=== PATIENT | female | born 1980 | race Caucasian/White ===

== ENCOUNTER 2021-06-07 16:29 | Outpatient (REF) | payer BC, SELFPAY ==
--- NOTE | 2021-06-07 15:20 | CER_PTH ---
PATIENT: Tyler Montes LOC: N U#:[id number] AGE/SX: 41/F ROOM: RE06/07/[address]: Aditi Altamirano DO : 1980 BED: DIS: 06/07/2021 SPEC #: [id number] RECD: 06/07/21 17:03 STATUS: VIKASH RE #: [id number] JAXSON: 06/07/21 15:[address]: Aditi Altamirano DEPT: Surgical Specimen RECD BY: Radha Duggan ENTERED: 06/07/21 17:04 SP TYPE: CER OTHR DR: Fouzia Daugherty Tissues: 1 - ENDOCERVICAL BX/CURRETTE 2 - CERVICAL BIOPSY Procedures: GROSS AND MICRO LEVEL 4 Comments: [id number]
== END 2021-06-07 16:30 | disposition home or self-care (01) ==
LOC: LBN 16:29
PROVIDERS: PCP Nurse Practitioner; Visit Provider Obstetrics & Gynecology
DX: R87.610 Atypical squamous cells of undetermined significance on cytologic smear of cervix (ASC-US) (principal)
CPT/HCPCS: 88305

== ENCOUNTER 2022-07-31 09:17 | Inpatient (IN) | payer BC, SELFPAY ==
[2022-07-31] VITALS (24 sets, daily range): BP systolic 127–147; BP diastolic 86–121; PULSE 94–153; RESP 18–25; TEMP 37–38.5; O2SAT 98–100
--- NOTE | 2022-07-31 09:30 | RT.EKG_ITS ---
APPROVED REPORT Exam: Resting ECG Reason for Exam: eating disorder, ETOH abuse, hematemesis Patient Location: E HR:116 bpm ECG Measurements Heart Rate 116 AXIS GA 112 P 74 QRSd 77 QRS 63 QT 317 T 61 QTc 441 Conclusion Sinus tachycardia...rate> 99 Left atrial enlargement...P, P'>60mS, <-0.15mV V1 Narrow complex sinus tachycardia at a rate of 116. Normal axis. Diffuse mild ST segment depressions . T wave flattening in aVL. No prior for comparison. QTc within normal limits.
--- NOTE | 2022-07-31 09:40 | DI.CT_ITS ---
Exam(s) CT CHEST/ABD/PEL WO EXAM: CT CHEST/ABD/PEL WO CLINICAL HISTORY: hematemesis, hx of ETOH abuse, started non bloody. TECHNIQUE: Imaging Protocol: Axial computed tomography images with coronal and sagittal reformatted images were created and reviewed CONTRAST MATERIAL: Intravenous: none Oral: None COMPARISON: No exams were available for comparison FINDINGS: CHEST: LUNGS: No infiltrates nor pleural effusions. No ominous pulmonary nodules. No significant focal fin dings in the trachea and mainstem bronchi. No bronchiectasis.. MEDIASTINUM: No obvious hilar nor mediastinal adenopathy. Visualized thyroid unremarkable.There is di ffuse circumferential thickening of the esophagus. No obvious paraesophageal adenopathy. CARDIAC: Heart size is normal. There is no pericardial effusion.Caliber of the thoracic aorta is wit hin normal limits. OSSEOUS: No significant osseous lesions.No fractures.. ABDOMEN: There is no ascites. LIVER: There are no obvious focal hepatic lesions evident of this noninfused study. GALLBLADDER/BILIARY: No obvious gallbladder pathology. CBD is not dilated. PANCREAS: No evidence of obvious pancreatic mass nor dilatation of the pancreatic duct. SPLEEN: Spleen is not enlarged. No obvious intrasplenic lesions. ADRENALS: There are no significant adrenal masses. KIDNEYS: No calculi nor hydronephrosis. No obvious solid renal masses. No cysts evident. ABDOMINAL AORTA: Abdominal aorta is not enlarged. LYMPH NODES: There is no retroperitoneal nor para-aortic adenopathy. ABDOMINAL WALL/GI: No evidence of significant anterior abdominal wall nor inguinal hernia. The entir e colon is collapsed difficult to evaluate. No evidence of small bowel obstruction. PELVIS: LYMPH NODES: There is no intrapelvic nor inguinal adenopathy. GI: No evidence of appendicitis.No evidence of sigmoid diverticulitis. URINARY BLADDER: No calculi nor obvious masses evident REPRODUCTIVE: Uterus and adnexal regions appear unremarkable. No free fluid. OSSEOUS: No significant osseous lesions. No fractures. Sacroiliac joints appear unremarkable IMPRESSION: 1. There appears to be circumferential thickening of the esophagus. Suspicious for esophagitis versu s is other inflammatory type process versus infiltrative process. This esophageal thickening appears to involve long length of the esophagus. 2. Colon is collapsed. There is no evidence of small-bowel obstruction. Findings called by myself to ER provider. RADIATION DOSE DELIVERED: 770.56mGy.cm Total DLP DATA REPOSITORY: All CT scans at this facility are submitted to the National Radiology Data Registry (NRDR) Dose Index Registry (DIR) with the [employer] (A[employer]). RADIATION OPTIMIZATION: All CT scans at this facility use at least one of these dose optimization te chniques: automated exposure control; mA and/or kV adjustment per patient size (includes targeted exa ms where dose is matched to clinical indication); or iterative reconstruction.
--- NOTE | 2022-07-31 09:41 | ED.GENADUL_ITS ---
Discharge Plan Disposition Patient Disposition: Admit to [facility] Condition: Serious Condition: Good Discharge Details Chief Complaint: GI Bleed Clinical Impression: Malnutrition, Upper GI bleeding, Alcohol abuse Admit Date/Time: 07/31/22 14:54 Admit Provider: Nathalia Vail Attending Provider: Nathalia Vail ED Provider: Candie Cleaning Discharge Instructions Activity:: Activity as Tolerated Equipment/Supplies:: No Equipment Needed Diet:: soft foods Discharge Orders Discharge Orders: Discharge Order (Routine); Ordered 08/03/22 Ordered By: Rajan Bennett Discharge Data Discharge Date/Time-TO BE ENTERED AT DEPARTURE: 07/31/22 16:35 Medical Decision Making Patient is a pleasant 42-year-old female, accompanied by her mother, with chief complaint of hematemesis. Patient has past medical history of EtOH abuse and states that she routinely drinks whiskey. However, has not been able to have this over the past 24 hours because of the nausea and vomiting. States that yesterday around 3 PM she awoke from sleep and had an episode of emesis which she states was normal liquids and foodstuffs. However, she subsequently developed hematemesis and is bringing up some large clots. Has not had any diarrhea or bright red blood per rectum. Did not have a bowel movement yesterday. No previous abdominal surgeries. States she does have suffer from eating disorder as well. States that she has had a history of acid reflux but this does not feel the same. Has not had any syncopal episodes or lightheadedness. Denies any shortness of breath or chest pain. States that she is been having some epigastric discomfort fairly continuously since the onset. Did try some Zofran that was from others at home without any success. On exam, patient appears acutely ill. She is tremulous and I am concerned for alcohol withdrawals. No known seizure history. She is tachypneic and tachycardic. However, lungs are clear and she is normal cardiac auscultation. No crepitus is palpated. She does have some dark purple staining in her mouth, concern for some dried blood. Abdomen is tender near the epigastric region but no peritoneal findings. She states that this more induces the increase feeling of nausea. No susna peritoneal findings at this time. I not appreciate any rash or petechia. She does have warm pink skin appears well-perfused. Patient is not hypotensive. At this time, I am concerned for multitude of factors including alcohol withdrawal, GI bleed. As she did have the initial foodstuffs, I am concerned for potential Zoë-Mason although variceal bleed certainly needs to be considered as the patient does have such a lengthy history of EtOH abuse and has not had any routine medical care. She is not actively vomiting at this point. We will begin hydrating the patient, give antiemetics, Protonix as well as Ativan. Will obtain imaging baseline labs which will also include type and screen, evaluation of coagulation, lipase, LFTs. Patient resting comfortably. Shaking has stopped. She is sleeping, mom at bedside. No further N/V. Receiving hydration. Labs reviewed, leukocytosis with WBC 28. H&H are stable. Platetlets WNL. Lactate 4.7. Gap 32. Creatinin 1.9. GFR 33, will change CT scan to non-contrast. LFT WNL. Glucose elevated >300, no hx of DM. Will obtain VBG. Will trend the glucose. CT reviewed by radiology: CHEST: LUNGS: No infiltrates nor pleural effusions.? No ominous pulmonary nodules.? No significant focal findings in the trachea and mainstem bronchi.? No bronchiectasis..? MEDIASTINUM: No obvious hilar nor mediastinal adenopathy. Visualized thyroid unremarkable.There is diffuse circumferential thickening of the esophagus.? No obvious paraesophageal adenopathy. CARDIAC: Heart size is normal.? There is no pericardial effusion.Caliber of the thoracic aorta is within normal limits. OSSEOUS: No significant osseous lesions.No fractures.. ABDOMEN: There is no ascites. LIVER: There are no obvious focal hepatic lesions evident of this noninfused study.? GALLBLADDER/BILIARY: No obvious gallbladder pathology.? CBD is not dilated. PANCREAS: No evidence of obvious pancreatic mass nor dilatation of the pancreatic duct.? SPLEEN: Spleen is not enlarged.? No obvious intrasplenic lesions.? ADRENALS: There are no significant adrenal masses. KIDNEYS: No calculi nor hydronephrosis. No obvious solid renal masses. No cysts evident. ABDOMINAL AORTA: Abdominal aorta is not enlarged. LYMPH NODES: There is no retroperitoneal nor para-aortic adenopathy. ABDOMINAL WALL/GI: No evidence of significant anterior abdominal wall nor inguinal hernia.? The entire colon is collapsed difficult to evaluate. No evidence of small bowel obstruction. PELVIS:? LYMPH NODES: There is no intrapelvic nor inguinal adenopathy. GI: No evidence of appendicitis.No evidence of sigmoid diverticulitis. URINARY BLADDER: No calculi nor obvious masses evident REPRODUCTIVE: Uterus and adnexal regions appear unremarkable.? No free fluid. OSSEOUS: No significant osseous lesions.? No fractures. Sacroiliac joints appear unremarkable IMPRESSION: 1. There appears to be circumferential thickening of the esophagus.? Suspicious for esophagitis versus is other inflammatory type process versus infiltrative process.? This esophageal thickening appears to involve long length of the esophagus. 2. Colon is collapsed.? There is no evidence of small-bowel obstruction. volleyball coach to see patient. Consulted with general surgery to discuss case. they advised patient does not need emergent EGD, recommended admission, monitoring, hydration. Consulted with hospitalist. Patient to be admitted for hematemsis, dehydration, ETOH withdraw. HPI General Date/Time Provider Initiated Documentation: 07/31/22 09:28 . Limitations to Documentation: no limitations . Information obtained by: patient, family (mom) and RN notes reviewed . History of Present Illness 42 year old F presents to the emergency department with the chief complaint of nausea, hematemesis , described as severe, Quality is described as aching (nausea), and is localized to the abdomen. Patient reports no radiation. Patient started experiencing this day(s) (1) and it has been constant. No relieving factors improve symptom(s), No exacerbating factors reported . Patient notes fever/chills, loss of appetite, malaise, nausea/vomiting and weakness (feels generally weak); denies chest pain, cough, headaches, rash, seizure (no hx of DT in the past) and shortness of breath. Patient did receive the following treatments prior to arrival, other (tried zofran initially, no improvment) Related Data Home Medications Medication Instructions Recorded Confirmed citalopram 20 mg tablet 20 mg PO DAILY #30 tabs 08/03/22 dronabinol 2.5 mg capsule 5 mg PO BID@0700,1600 #60 caps 08/03/22 folic acid 1 mg tablet 1 mg PO DAILY #30 tabs 08/03/22 magnesium oxide 400 mg (241.3 mg 800 mg PO DAILY #30 tabs 08/03/22 magnesium) tablet multivitamin (Multiple Vitamins 1 tab PO QAM #30 tabs 08/03/22 tablet) pantoprazole 40 mg tablet,delayed 40 mg PO DAILY #30 tabs 08/03/22 release (Protonix) sucralfate 1 gram tablet 1 g PO Q6H #120 tabs 08/03/22 thiamine mononitrate (vit B1) 100 100 mg PO QAM #30 tabs 08/03/22 mg tablet (Vitamin B-1 (mononitrate)) Previous Rx's Medication Instructions Recorded citalopram 20 mg tablet 20 mg PO DAILY #30 tabs 08/03/22 dronabinol 2.5 mg capsule 5 mg PO BID@0700,1600 #60 caps 08/03/22 folic acid 1 mg tablet 1 mg PO DAILY #30 tabs 08/03/22 magnesium oxide 400 mg (241.3 mg 800 mg PO DAILY #30 tabs 08/03/22 magnesium) tablet multivitamin (Multiple Vitamins 1 tab PO QAM #30 tabs 08/03/22 tablet) pantoprazole 40 mg tablet,delayed 40 mg PO DAILY #30 tabs 08/03/22 release (Protonix) sucralfate 1 gram tablet 1 g PO Q6H #120 tabs 08/03/22 thiamine mononitrate (vit B1) 100 100 mg PO QAM #30 tabs 08/03/22 mg tablet (Vitamin B-1 (mononitrate)) Allergies Allergy/AdvReac Type Severity Reaction Status Date / Time No Known Allergies Allergy Verified 06/07/21 15:06 General Stated Complaint: GI Bleed DIANA: 2 Review of Systems Constitutional Constitutional: Reports as per HPI, Denies chills, Denies fever(s) and Denies headache(s) ENT Ears, Nose, Mouth, and Throat: Denies headache(s) Cardiovascular Cardiovascular: Reports as per HPI, Denies chest pain and Denies dyspnea Respiratory Respiratory: Reports as per HPI, Denies cough and Denies dyspnea Gastrointestinal Gastrointestinal: Reports as per HPI Musculoskeletal Musculoskeletal: Reports as per HPI Integumentary/Breasts Skin/Breast: Reports as per HPI and Denies rash Neurologic Neurologic: Reports as per HPI and Denies headache(s) PFSH All Active Problems (Updated 08/10/22 @ 09:49 by JOSE ALEJANDRO Bah) Malnutrition (Acute) Alcohol abuse (Chronic) Upper GI bleeding (Acute) Pap smear of cervix with ASCUS, cannot exclude HGSIL (Acute) 05/23 Pap=ASCUS-H, -HR HPV 06/21 Pap-WNL, +HR HPV 09/13 Pap=ASCUS ?HPV Medical History Anxiety Depression Fibromyalgia Surgical History History of bunionectomy of both great toes Family History Paternal Grandfather Heart disease Paternal Grandmother Stroke Mother Hypertension Cancer cervical cancer Sister Cancer cervical cancer Social History Smoking/Tobacco Use Status: Current every day Smoking risk assessment performed?: Yes Alcohol Intake: current Alcohol Intake frequency: 0-2 drinks per day Drug use: Daily Substance use type: marijuana Current gender identity: female Exam Const General: cooperative, anxious, frail appearing, ill appearing acutely and No well hydrated Nutritional Appearance: malnourished and underweight (states she has an eating disorder) Orientation: alert and awake [facility] Head: normal to inspection Mouth: oropharynx normal (no rash) and mucous membranes dry Throat: posterior oropharynx normal Eyes General: appearance normal, both eyes and all related structures Conjunctivae: conjunctivae normal (no palor) Neck Neck: normal visual inspection, full ROM, no lymphadenopathy and no meningeal signs Resp Effort & Inspection: normal respiratory effort, able to speak in complete sentences and no respiratory distress Auscultation: clear to auscultation bilaterally, no rales, no rhonchi and no wheezes Cardio Rate: tachycardic Rhythm: regular rhythm Heart Sounds: S1 normal and S2 normal GI Inspection: normal to inspection Palpation: soft, no guarding, no masses, not rigid, tender in the epigastrum; Monahan's sign negative and with no rebound tenderness and No ascites Percussion: normal to percussion Auscultation: hypoactive bowel sounds Back/Spine/Pelvis Back: no CVA tenderness Skin General skin exam: no rashes or lesions noted Trauma: no lacerations or abrasions Neuro General: patient alert and patient awake Cognition: normal cognition Speech: speech normal Gait: normal gait Motor: muscle tone normal throughout, tremor (upper extremities are shakey) and No asterixis Psych Appearance: grossly normal Mental Status: mental status grossly normal Speech and Movement: speech and movement normal Mood: anxious mood Affect: anxious affect Course Vital Signs Vital signs: Vital Signs Temperature 37.0 C 07/31/22 09:27 Pulse 153 H 07/31/22 09:27 Respiratory Rate 20 07/31/22 09:27 Blood Pressure 144/121 H 07/31/22 09:27 Pulse Oximetry 99 07/31/22 09:27 Temperature 37.0 C 07/31/22 09:27 Temperature Source Temporal Artery Scan 07/31/22 09:27 Pulse 153 H 07/31/22 09:27 Respiratory Rate 20 07/31/22 09:27 Blood Pressure 144/121 H 07/31/22 09:27 Blood Pressure Position Sitting 07/31/22 09:27 Pulse Oximetry 99 07/31/22 09:27
[2022-07-31] MEDS: Lactated Ringers 1,000 ML 1000 ML IV ×3 (10:01→13:00)
[2022-07-31] MEDS: LORazepam 2 MG/ML VIAL 1 MG IVP (10:02)
[2022-07-31] MEDS: Pantoprazole 40 MG VIAL 80 MG IVP (10:02)
[2022-07-31] MEDS: Ondansetron 4 MG/2 ML VIAL IVP ×2 (10:02→17:09)
[2022-07-31 10:03] LABS: Lactate 4.7 mmol/L (0.6-1.4)
[2022-07-31 10:04] LABS: Abs Immature Grans 0.27 10^3/uL (0.0-0.06); Basophils % 0.3; HCT 50.6 % (36.0-46.0); HGB 16.8 g/dL (11.2-15.7); Immature Grans % 0.8; Lymphocytes % 2.1; MCH 35.1 pg (27.0-33.0); MCHC 33.2 % (32.0-36.0); MCV 106 fL (80-95); MPV 9.7 fL (8.0-11.0); Monocytes % 4.2; Neutrophils % 92.6; Platelet Count 388 10^3/uL (130-400); RBC 4.78 10^6/uL (3.93-5.22); RDW 12.1 % (11.7-14.6)
[2022-07-31 10:07] LABS: Absolute Lymphocyte Count 0.73 10^3/uL (1.2-3.4); Absolute Monocyte Count 1.46 10^3/uL (0.1-0.8); Absolute Neutrophil Count 32.09 10^3/uL (1.2-6.7)
[2022-07-31 10:08] LABS: WBC 34.65 10^3/uL (4.4-10.8)
[2022-07-31 10:21] LABS: PTT Activated 28.4 sec (21.5-31.9); Prothrombin Time 9.9 sec (9.3-11.0)
[2022-07-31 10:23] LABS: Diff Comment Agrees w/ Instrument; Macrocytosis 2+
[2022-07-31 10:30] LABS: ALT 33 U/L (14-59); AST 35 U/L (15-37); Albumin 5.2 g/dL (3.4-5.0); Alkaline Phosphatase 137 U/L (46-116); Anion Gap 32.8 mmol/L (3-11); BUN 19 mg/dL (7-18); Bilirubin, Total 0.9 mg/dL (0.2-1.0); CO2 9.2 mmol/L (21.0-32.0); CREATININE 1.9 mg/dL (0.55-1.02); Calcium 9.8 mg/dL (8.5-10.1); Chloride 99 mmol/L (98-107); Estimated GFR 33.39 (mL/min/1.73m2); Glucose 329 mg/dL (74-106); Lipase 67 U/L (16-77); Magnesium 2.4 mg/dL (1.8-2.4); Potassium 4.1 mmol/L (3.5-5.1); Sodium 141 mmol/L (136-145); Total Protein 9.8 g/dL (6.4-8.2); Troponin I < 50 ng/L (<or=60)
[2022-07-31 13:04] LABS: Lactate 2.2 mmol/L (0.6-1.4)
[2022-07-31] MEDS: diphenhydrAMINE 50 MG/ML VIAL 25 MG IVP (13:12)
[2022-07-31] MEDS: Metoclopramide 10 MG/2 ML VIAL IVP (13:12)
[2022-07-31 13:22] LABS: Troponin I < 50 ng/L (<or=60)
[2022-07-31 14:14] LABS: Source Nasal/Nares
[2022-07-31 14:15] LABS: Abs Immature Grans 0.18 10^3/uL (0.0-0.06); Absolute Basophil Count 0.06 10^3/uL (0.0-0.2); Absolute Lymphocyte Count 1.26 10^3/uL (1.2-3.4); Absolute Monocyte Count 1.86 10^3/uL (0.1-0.8); Absolute Neutrophil Count 25.31 10^3/uL (1.2-6.7); Basophils % 0.2; HCT 40.7 % (36.0-46.0); HGB 13.8 g/dL (11.2-15.7); Immature Grans % 0.6; Lymphocytes % 4.4; MCH 34.9 pg (27.0-33.0); MCHC 33.9 % (32.0-36.0); MCV 103 fL (80-95); MPV 9.6 fL (8.0-11.0); Monocytes % 6.5; Neutrophils % 88.3; Platelet Count 291 10^3/uL (130-400); RBC 3.95 10^6/uL (3.93-5.22); RDW-SD 45.9 fL
[2022-07-31 14:16] LABS: WBC 28.66 10^3/uL (4.4-10.8)
[2022-07-31 14:33] LABS: Diff Comment Diff Reviewed; RBC Morphology Normal
[2022-07-31 15:40] LABS: BE (Venous) -8 mmol/L (-2-3); HCO3 (Venous) 17 mmol/L (23-28); O2 Sat (Venous) 83 %; TCO2 (Venous) 16 mmol/L (24-29); pCO2 (Venous) 32 mmHg (41-51); pH (Venous) 7.34 (7.31-7.41); pO2 (Venous) 41 mmHg
[2022-07-31 15:40] LABS: Hemoglobin A1C 4.7 % (<5.7)
[2022-07-31] MEDS: Sucralfate 1 GM TAB PO ×2 (15:43→20:16)
[2022-07-31 15:55] LABS: COVID-19 PCR Negative (Negative)
[2022-07-31 16:01] LABS: Anion Gap 16.8 mmol/L (3-11); BUN 15 mg/dL (7-18); CO2 18.2 mmol/L (21.0-32.0); Calcium 9.1 mg/dL (8.5-10.1); Chloride 108 mmol/L (98-107); Estimated GFR 72.13 (mL/min/1.73m2); Glucose 124 mg/dL (74-106); Potassium 3.9 mmol/L (3.5-5.1); Sodium 143 mmol/L (136-145)
--- NOTE | 2022-07-31 16:36 | HPE_ITS ---
Date of service: 07/31/22 Time of Service: 16:36 Assessment and Plan Assessment and plan (1) SIRS (systemic inflammatory response syndrome): Status: Acute Assessment and plan: In setting of a fever, infectious etiologies need to be considered. In addition, DKA, GI bleeding, esophageal process can all contribute to SIRS. Hydrate, start empiric abx (zosyn), will give a push of 5 units of regular insu pura and cover w/ D5 fluids as BGs are in 120s now, treat GI Bleeding. Given the rate of improvement w/o insulin, I do not think that she will need an insulin drip, but we will monitor serial labs to help make that decision. MOnitor H/H. (2) Metabolic acidosis: Status: Acute Assessment and plan: Due to likely DKA (BG >300, high anion gap), starvation ketoacidosis, dehydration, lactic acidosis. Continue IV hydration. DKA tx as above. Trend lactates. (3) Hyperglycemia: Status: Acute Assessment and plan: A1C of 4.7 suggest that the hyperglycemia/DKA are relatively new. I am checking fructosamine. Will treat as DKA for now. (4) Upper GI bleeding: Status: Acute Assessment and plan: Treat with IV protonix + carafate. NPO Trend H/H. Cardiac monitoring. General surgery consulted. (5) Alcohol withdrawal: Status: Acute Assessment and plan: Treat with the benzodiazepine protocol in the ICU (6) Alcohol abuse: Status: Chronic Assessment and plan: Check b12/folate. IV thiamine, MVI. (7) Malnutrition: Status: Acute Assessment and plan: C/s nutrition Patient diagnosed herself with an eating d/o. Her BMI is 18.2, and I think she might be right. (8) DVT prophylaxis: Status: Acute Assessment and plan: SCDS hold chemical dvt ppx in light of GI bleeding (9) Discharge planning issues: Status: Acute Assessment and plan: Full code Admit to ICU. Total Critical Care Time 60 minutes. History of Present Illness History of Present Illness Chief Complaint: Vomiting blood Narrative: Ms Montes is a 42 year old female with no known PMHx other than alcohol abuse who presented to [facility] ED with vomiting blood, preceded by regular emesis yesterday. The patient states she woke up at 3 pm yesterday and had numerous episodes of emesis since. Denies diarrhea, states she has not eaten for a few days due to a self-diagnosed eating disorder and not feeling hunger. The patient reported epigastric discomfort. Denies fevers, endorses a chronic nonproductive cough, denies dysuria. In the ED, she was found to be withdrawing from alcohol. She had not been able to keep alcohol down for 24 hrs. She does not have a known h/o alcohol withdrawal or alcohol withdrawal seizures. Her symptoms responded well to lorazepam in the ED. She has not vomited in the ER. She was found to be tachycardic, to have a white count of 34.65 down to 28.66 on recheck, H/H of 16.8/50.6, down to 13.8/40.7, and platelets of 291. Her lactate improved to 2.2 from 4.7 after about 3L of fluid. Her blood sugar on the initial chemistry was 329 with a bicarb of 9.2. Her anion gap was 32.8. Repeat chemistry almost 6 hrs later showed a bicarb of 18.2, anion gap of 16.8. Repeat blood glucose was 124. VBG at the time of the 2nd chemistry shows pH of 7.34. UA is not available for interpretation. CT chest/abdomen/pelvis was c/w esophagitis vs other inflammatory vs infiltrative esophageal process. The patient was evaluated by general surgery who feel the patient would benefit from a nonemergent EGD. She is recommended to be on a PPI and carafate. Upon arrival to the ICU, the patient was noted to be febrile to 38.5. Review of Systems All systems reviewed & are unremarkable except as noted in HPI and below PFSH All Active Problems (Updated 07/31/22 @ 17:11 by Nathalia Vail MD) Discharge planning issues (Acute) DVT prophylaxis (Acute) Malnutrition (Acute) Alcohol withdrawal (Acute) Alcohol abuse (Chronic) Upper GI bleeding (Acute) Hyperglycemia (Acute) Metabolic acidosis (Acute) SIRS (systemic inflammatory response syndrome) (Acute) Pap smear of cervix with ASCUS, cannot exclude HGSIL (Acute) 05/23 Pap=ASCUS-H, -HR HPV 06/21 Pap-WNL, +HR HPV 09/13 Pap=ASCUS ?HPV Medical History (Updated 07/31/22 @ 17:11 by Nathalia Vail MD) Anxiety Depression Fibromyalgia Surgical History (Updated 07/31/22 @ 17:11 by Nathalia Vail MD) History of bunionectomy of both great toes Family History (Updated 07/31/22 @ 17:13 by Nathalia Vail MD) Paternal Grandfather Heart disease Paternal Grandmother Stroke Mother Hypertension Cancer cervical cancer Sister Cancer cervical cancer Social History Smoking/Tobacco Use Status: Current every day Smoking risk assessment performed?: Yes Alcohol Intake: current Alcohol Intake frequency: 0-2 drinks per day Drug use: Daily Substance use type: marijuana Current gender identity: female Meds Allergies and Home Medications Allergies Allergy/AdvReac Type Severity Reaction Status Date / Time No Known Allergies Allergy Verified 06/07/21 15:06 Home Medications Medication Instructions Recorded Confirmed Type Unknown [No Known Home Meds] 06/07/21 History Exam Narrative Exam Narrative: General: Tremulous malnourished appearing female, anxious, A&Ox3 Neurological: A&Ox3, no focal deficits, tremulous Psychiatric: Anxious, appropriate speech pattern/content Skin: Dry/intact HEENT: Atraumatic, normocephalic, EOMI, dry MM, black-stained tongue (presumably from hematemesis), no submandibular or cervical lymphadenopathy, no goiter or JVD Cardiovascular: RRR, no m/r/g, tachycardic Lungs: CTAB Gastrointestinal: soft, tender in epigastrium, nondistended Genitourinary: deferred Extremities: no edema BLEs, 1+ pedal pulses B, no c/c. Results Imaging Additional studies: CT abdomen/pelvis: 1. There appears to be circumferential thickening of the esophagus.? Suspicious for esophagitis versus is other inflammatory type process versus infiltrative process.? This esophageal thickening appears to involve long length of the esophagus. 2. Colon is collapsed.? There is no evidence of small-bowel obstruction. EKG: ST, HR 116, no acute ischemia with diffuse ST segment depressions. Labs 07/31/22 14:10 07/31/22 15:40 Labs: Laboratory Results - last 24 hr 07/31/22 07/31/22 07/31/22 09:50 09:50 09:50 WBC 34.65 H* RBC 4.78 Hgb 16.8 H Hct 50.6 H MCV 106 H MCH 35.1 H MCHC 33.2 RDW 12.1 Plt Count 388 MPV 9.7 Immature Gran % 0.8 Neutrophils % 92.6 Lymphocytes % 2.1 Monocytes % 4.2 Eosinophils % 0.0 Basophils % 0.3 Nucleated RBC % 0.0 Absolute Neutrophils 32.09 H Absolute Lymphocytes 0.73 L Absolute Monocytes 1.46 H Absolute Eosinophils 0.00 Absolute Basophils 0.10 RBC Morphology See Below Macrocytosis 2+ PT 9.9 INR 1.0 APTT 28.4 VBG pH VBG pCO2 VBG pO2 VBG HCO3 VBG Total CO2 VBG O2 Saturation VBG Base Excess VBG Lactate Sodium 141 Potassium 4.1 Chloride 99 Carbon Dioxide 9.2 L Anion Gap 32.8 H BUN 19 H Creatinine 1.9 H Est GFR (CKD-EPI 2020) 33.39 Glucose 329 H Hemoglobin A1c Calcium 9.8 Magnesium 2.4 Total Bilirubin 0.9 AST 35 ALT 33 Alkaline Phosphatase 137 H Troponin I < 50 Total Protein 9.8 H Albumin 5.2 H Lipase 67 COVID-19 Source SARS-CoV-2 (PCR) Patient ABO/Rh Antibody Screen 07/31/22 07/31/22 07/31/22 09:50 09:50 13:00 WBC RBC Hgb Hct MCV MCH MCHC RDW Plt Count MPV Immature Gran % Neutrophils % Lymphocytes % Monocytes % Eosinophils % Basophils % Nucleated RBC % Absolute Neutrophils Absolute Lymphocytes Absolute Monocytes Absolute Eosinophils Absolute Basophils RBC Morphology Macrocytosis PT INR APTT VBG pH VBG pCO2 VBG pO2 VBG HCO3 VBG Total CO2 VBG O2 Saturation VBG Base Excess VBG Lactate 4.7 H* Sodium Potassium Chloride Carbon Dioxide Anion Gap BUN Creatinine Est GFR (CKD-EPI 2020) Glucose Hemoglobin A1c Calcium Magnesium Total Bilirubin AST ALT Alkaline Phosphatase Troponin I < 50 Total Protein Albumin Lipase COVID-19 Source SARS-CoV-2 (PCR) Patient ABO/Rh O Positive Antibody Screen NEGATIVE 07/31/22 07/31/22 07/31/22 13:00 13:39 13:39 WBC RBC Hgb Hct MCV MCH MCHC RDW Plt Count MPV Immature Gran % Neutrophils % Lymphocytes % Monocytes % Eosinophils % Basophils % Nucleated RBC % Absolute Neutrophils Absolute Lymphocytes Absolute Monocytes Absolute Eosinophils Absolute Basophils RBC Morphology Macrocytosis PT Cancelled INR Cancelled APTT VBG pH VBG pCO2 VBG pO2 VBG HCO3 VBG Total CO2 VBG O2 Saturation VBG Base Excess VBG Lactate 2.2 H* Sodium Potassium Chloride Carbon Dioxide Anion Gap BUN Creatinine Est GFR (CKD-EPI 2020) Glucose Hemoglobin A1c 4.7 Calcium Magnesium Total Bilirubin AST ALT Alkaline Phosphatase Troponin I Total Protein Albumin Lipase COVID-19 Source SARS-CoV-2 (PCR) Patient ABO/Rh Antibody Screen 07/31/22 07/31/22 07/31/22 13:42 14:10 14:10 WBC 28.66 H* RBC 3.95 Hgb 13.8 D Hct 40.7 MCV 103 H MCH 34.9 H MCHC 33.9 RDW 12.0 Plt Count 291 MPV 9.6 Immature Gran % 0.6 Neutrophils % 88.3 Lymphocytes % 4.4 Monocytes % 6.5 Eosinophils % 0.0 Basophils % 0.2 Nucleated RBC % 0.0 Absolute Neutrophils 25.31 H Absolute Lymphocytes 1.26 Absolute Monocytes 1.86 H Absolute Eosinophils 0.00 Absolute Basophils 0.06 RBC Morphology Normal Macrocytosis PT INR APTT VBG pH VBG pCO2 VBG pO2 VBG HCO3 VBG Total CO2 VBG O2 Saturation VBG Base Excess VBG Lactate Sodium Potassium Chloride Carbon Dioxide Anion Gap BUN Creatinine Est GFR (CKD-EPI 2020) Glucose Hemoglobin A1c Calcium Magnesium Total Bilirubin AST ALT Alkaline Phosphatase Troponin I Total Protein Albumin Lipase COVID-19 Source Nasal/Nares SARS-CoV-2 (PCR) Negative Patient ABO/Rh Cancelled Antibody Screen 07/31/22 07/31/22 15:35 15:40 WBC RBC Hgb Hct MCV MCH MCHC RDW Plt Count MPV Immature Gran % Neutrophils % Lymphocytes % Monocytes % Eosinophils % Basophils % Nucleated RBC % Absolute Neutrophils Absolute Lymphocytes Absolute Monocytes Absolute Eosinophils Absolute Basophils RBC Morphology Macrocytosis PT INR APTT VBG pH 7.34 VBG pCO2 32 L VBG pO2 41 VBG HCO3 17 L VBG Total CO2 16 L VBG O2 Saturation 83 VBG Base Excess -8 L VBG Lactate Sodium 143 Potassium 3.9 Chloride 108 H Carbon Dioxide 18.2 L Anion Gap 16.8 H BUN 15 Creatinine 1.0 Est GFR (CKD-EPI 2020) 72.13 Glucose 124 H Hemoglobin A1c Calcium 9.1 Magnesium Total Bilirubin AST ALT Alkaline Phosphatase Troponin I Total Protein Albumin Lipase COVID-19 Source SARS-CoV-2 (PCR) Patient ABO/Rh Antibody Screen Last Vital Signs Temp 37.0 C 02/28/23 09:27 Pulse 102 H 07/31/22 15:01 Resp 20 07/31/22 09:27 BP 143/100 H 07/31/22 15:01 Pulse Ox 99 07/31/22 15:01 PAWSS Have you Been Recently Intoxicated or Drunk Within the Last 30 days?: Yes Have you Ever Experienced Previous Episodes of Alcohol Withdrawal?: No Have you ever Experienced Withdrawal Seizures?: No Have you ever Experienced Delirium Tremens(DT)s?: No Have you ever undergone Alcohol Rehabilitation Treatment (i.e, inpt ot outpatient treatment programs)?: No Have you ever Experienced Blackouts?: Yes Have you ever Combined Alcohol with other Downers within the last 90 days?: No Have you ever Combined Alcohol with any other Substance of Abuse during the last 90 days?: Yes Positive Blood Alcohol level on Presentation? [PCS.BAL]: Unable to Obtain Evidence of Increased Autonomic Activity (i.e. HR>120, tremor, sweating, agitation, nausea)?: Yes Result: 5 Time Spent Time spent with Patient: 55-74 minutes Time was spent: preparing to see the patient(eg.review tests), obtaining and/or reviewing separately otained hiistory, ordering medications,tests, procedures, referring, communicating with other health manager respiratory care, indepentently interpreting results, counseling the patient and care coordination
[2022-07-31 16:46] LABS: Lab Add On Test DONE
[2022-07-31 17:06] LABS: Bilirubin Moderate (Negative); Blood Small (Negative); Clarity Clear (Clear); Glucose Negative (Negative); Ketones >=160 mg/dL (Negative); Leukocyte Esterase Negative (Negative); Nitrite Negative (Negative); Specific Gravity >= 1.030 (1.005-1.025); Urobilinogen 0.2 mg/dL (Up to 0.2)
[2022-07-31] MEDS: Normal Saline Flush 10 ML SYR IVP (17:09)
[2022-07-31] MEDS: Pantoprazole 40 MG VIAL IVP (17:09)
[2022-07-31 17:12] LABS: Bacteria Negative HPF (Negative); C & S Indicated? No; Casts Negative LPF (Negative); Crystals Negative HPF (Negative); Epithelial Cells Few HPF (Negative); Mucus Negative (Negative); Other Cells Negative (Negative); WBC 0-2 HPF (0-5)
[2022-07-31 17:14] LABS: Procalcitonin 0.1 ng/mL
--- NOTE | 2022-07-31 17:40 | W.PM.PROGNOT ---
Date of Service Date of service: 07/31/22 Time of Service: 15:30 Objective Last Vital Signs Temp 37.0 C 07/31/22 09:27 Pulse 102 H 07/31/22 15:01 Resp 20 07/31/22 09:27 BP 143/100 H 07/31/22 15:01 Pulse Ox 99 07/31/22 15:01 Laboratory Results - last 24 hr 07/31/22 07/31/22 07/31/22 09:50 09:50 09:50 WBC 34.65 H* RBC 4.78 Hgb 16.8 H Hct 50.6 H MCV 106 H MCH 35.1 H MCHC 33.2 RDW 12.1 Plt Count 388 MPV 9.7 Immature Gran % 0.8 Neutrophils % 92.6 Lymphocytes % 2.1 Monocytes % 4.2 Eosinophils % 0.0 Basophils % 0.3 Nucleated RBC % 0.0 Absolute Neutrophils 32.09 H Absolute Lymphocytes 0.73 L Absolute Monocytes 1.46 H Absolute Eosinophils 0.00 Absolute Basophils 0.10 RBC Morphology See Below Macrocytosis 2+ PT 9.9 INR 1.0 APTT 28.4 VBG pH VBG pCO2 VBG pO2 VBG HCO3 VBG Total CO2 VBG O2 Saturation VBG Base Excess VBG Lactate Sodium 141 Potassium 4.1 Chloride 99 Carbon Dioxide 9.2 L Anion Gap 32.8 H BUN 19 H Creatinine 1.9 H Est GFR (CKD-EPI 2020) 33.39 Glucose 329 H Hemoglobin A1c Calcium 9.8 Magnesium 2.4 Total Bilirubin 0.9 AST 35 ALT 33 Alkaline Phosphatase 137 H Troponin I < 50 Total Protein 9.8 H Albumin 5.2 H Lipase 67 Procalcitonin Urine Color Urine Clarity Urine pH Ur Specific [place] Urine Protein Urine Ketones Urine Blood Urine Nitrite Urine Bilirubin Urine Urobilinogen Ur Leukocyte Esterase Urine RBC Urine WBC Ur Epithelial Cells Urine Crystals Urine Bacteria Urine Casts Urine Mucus Urine Other Ur Culture Indicated? Urine Glucose COVID-19 Source SARS-CoV-2 (PCR) Add-On Test Request Patient ABO/Rh Antibody Screen 07/31/22 07/31/22 07/31/22 09:50 09:50 13:00 WBC RBC Hgb Hct MCV MCH MCHC RDW Plt Count MPV Immature Gran % Neutrophils % Lymphocytes % Monocytes % Eosinophils % Basophils % Nucleated RBC % Absolute Neutrophils Absolute Lymphocytes Absolute Monocytes Absolute Eosinophils Absolute Basophils RBC Morphology Macrocytosis PT INR APTT VBG pH VBG pCO2 VBG pO2 VBG HCO3 VBG Total CO2 VBG O2 Saturation VBG Base Excess VBG Lactate 4.7 H* Sodium Potassium Chloride Carbon Dioxide Anion Gap BUN Creatinine Est GFR (CKD-EPI 2020) Glucose Hemoglobin A1c Calcium Magnesium Total Bilirubin AST ALT Alkaline Phosphatase Troponin I < 50 Total Protein Albumin Lipase Procalcitonin Urine Color Urine Clarity Urine pH Ur Specific [place] Urine Protein Urine Ketones Urine Blood Urine Nitrite Urine Bilirubin Urine Urobilinogen Ur Leukocyte Esterase Urine RBC Urine WBC Ur Epithelial Cells Urine Crystals Urine Bacteria Urine Casts Urine Mucus Urine Other Ur Culture Indicated? Urine Glucose COVID-19 Source SARS-CoV-2 (PCR) Add-On Test Request Patient ABO/Rh O Positive Antibody Screen NEGATIVE 07/31/22 07/31/22 07/31/22 13:00 13:39 13:39 WBC RBC Hgb Hct MCV MCH MCHC RDW Plt Count MPV Immature Gran % Neutrophils % Lymphocytes % Monocytes % Eosinophils % Basophils % Nucleated RBC % Absolute Neutrophils Absolute Lymphocytes Absolute Monocytes Absolute Eosinophils Absolute Basophils RBC Morphology Macrocytosis PT Cancelled INR Cancelled APTT VBG pH VBG pCO2 VBG pO2 VBG HCO3 VBG Total CO2 VBG O2 Saturation VBG Base Excess VBG Lactate 2.2 H* Sodium Potassium Chloride Carbon Dioxide Anion Gap BUN Creatinine Est GFR (CKD-EPI 2020) Glucose Hemoglobin A1c 4.7 Calcium Magnesium Total Bilirubin AST ALT Alkaline Phosphatase Troponin I Total Protein Albumin Lipase Procalcitonin Urine Color Urine Clarity Urine pH Ur Specific [place] Urine Protein Urine Ketones Urine Blood Urine Nitrite Urine Bilirubin Urine Urobilinogen Ur Leukocyte Esterase Urine RBC Urine WBC Ur Epithelial Cells Urine Crystals Urine Bacteria Urine Casts Urine Mucus Urine Other Ur Culture Indicated? Urine Glucose COVID-19 Source SARS-CoV-2 (PCR) Add-On Test Request Patient ABO/Rh Antibody Screen 07/31/22 07/31/22 07/31/22 13:42 14:10 14:10 WBC 28.66 H* RBC 3.95 Hgb 13.8 D Hct 40.7 MCV 103 H MCH 34.9 H MCHC 33.9 RDW 12.0 Plt Count 291 MPV 9.6 Immature Gran % 0.6 Neutrophils % 88.3 Lymphocytes % 4.4 Monocytes % 6.5 Eosinophils % 0.0 Basophils % 0.2 Nucleated RBC % 0.0 Absolute Neutrophils 25.31 H Absolute Lymphocytes 1.26 Absolute Monocytes 1.86 H Absolute Eosinophils 0.00 Absolute Basophils 0.06 RBC Morphology Normal Macrocytosis PT INR APTT VBG pH VBG pCO2 VBG pO2 VBG HCO3 VBG Total CO2 VBG O2 Saturation VBG Base Excess VBG Lactate Sodium Potassium Chloride Carbon Dioxide Anion Gap BUN Creatinine Est GFR (CKD-EPI 2020) Glucose Hemoglobin A1c Calcium Magnesium Total Bilirubin AST ALT Alkaline Phosphatase Troponin I Total Protein Albumin Lipase Procalcitonin Urine Color Urine Clarity Urine pH Ur Specific [place] Urine Protein Urine Ketones Urine Blood Urine Nitrite Urine Bilirubin Urine Urobilinogen Ur Leukocyte Esterase Urine RBC Urine WBC Ur Epithelial Cells Urine Crystals Urine Bacteria Urine Casts Urine Mucus Urine Other Ur Culture Indicated? Urine Glucose COVID-19 Source Nasal/Nares SARS-CoV-2 (PCR) Negative Add-On Test Request Patient ABO/Rh Cancelled Antibody Screen 07/31/22 07/31/22 07/31/22 15:35 15:40 15:40 WBC RBC Hgb Hct MCV MCH MCHC RDW Plt Count MPV Immature Gran % Neutrophils % Lymphocytes % Monocytes % Eosinophils % Basophils % Nucleated RBC % Absolute Neutrophils Absolute Lymphocytes Absolute Monocytes Absolute Eosinophils Absolute Basophils RBC Morphology Macrocytosis PT INR APTT VBG pH 7.34 VBG pCO2 32 L VBG pO2 41 VBG HCO3 17 L VBG Total CO2 16 L VBG O2 Saturation 83 VBG Base Excess -8 L VBG Lactate Sodium 143 Potassium 3.9 Chloride 108 H Carbon Dioxide 18.2 L Anion Gap 16.8 H BUN 15 Creatinine 1.0 Est GFR (CKD-EPI 2020) 72.13 Glucose 124 H Hemoglobin A1c Calcium 9.1 Magnesium Total Bilirubin AST ALT Alkaline Phosphatase Troponin I Total Protein Albumin Lipase Procalcitonin 0.1 Urine Color Urine Clarity Urine pH Ur Specific [place] Urine Protein Urine Ketones Urine Blood Urine Nitrite Urine Bilirubin Urine Urobilinogen Ur Leukocyte Esterase Urine RBC Urine WBC Ur Epithelial Cells Urine Crystals Urine Bacteria Urine Casts Urine Mucus Urine Other Ur Culture Indicated? Urine Glucose COVID-19 Source SARS-CoV-2 (PCR) Add-On Test Request Patient ABO/Rh Antibody Screen 07/31/22 07/31/22 16:45 16:50 WBC RBC Hgb Hct MCV MCH MCHC RDW Plt Count MPV Immature Gran % Neutrophils % Lymphocytes % Monocytes % Eosinophils % Basophils % Nucleated RBC % Absolute Neutrophils Absolute Lymphocytes Absolute Monocytes Absolute Eosinophils Absolute Basophils RBC Morphology Macrocytosis PT INR APTT VBG pH VBG pCO2 VBG pO2 VBG HCO3 VBG Total CO2 VBG O2 Saturation VBG Base Excess VBG Lactate Sodium Potassium Chloride Carbon Dioxide Anion Gap BUN Creatinine Est GFR (CKD-EPI 2020) Glucose Hemoglobin A1c Calcium Magnesium Total Bilirubin AST ALT Alkaline Phosphatase Troponin I Total Protein Albumin Lipase Procalcitonin Urine Color Yellow Urine Clarity Clear Urine pH 6.0 Ur Specific [place] >= 1.030 H Urine Protein 100 H Urine Ketones >=160 H Urine Blood Small H Urine Nitrite Negative Urine Bilirubin Moderate H Urine Urobilinogen 0.2 Ur Leukocyte Esterase Negative Urine RBC 5-10 H Urine WBC 0-2 Ur Epithelial Cells Few Urine Crystals Negative Urine Bacteria Negative Urine Casts Negative Urine Mucus Negative Urine Other Negative Ur Culture Indicated? No Urine Glucose Negative COVID-19 Source SARS-CoV-2 (PCR) Add-On Test Request DONE Patient ABO/Rh Antibody Screen PAWSS Have you Been Recently Intoxicated or Drunk Within the Last 30 days?: Yes Have you Ever Experienced Previous Episodes of Alcohol Withdrawal?: No Have you ever Experienced Withdrawal Seizures?: No Have you ever Experienced Delirium Tremens(DT)s?: No Have you ever undergone Alcohol Rehabilitation Treatment (i.e, inpt ot outpatient treatment programs)?: No Have you ever Experienced Blackouts?: Yes Have you ever Combined Alcohol with other Downers within the last 90 days?: No Have you ever Combined Alcohol with any other Substance of Abuse during the last 90 days?: Yes Positive Blood Alcohol level on Presentation? [PCS.BAL]: Unable to Obtain Evidence of Increased Autonomic Activity (i.e. HR>120, tremor, sweating, agitation, nausea)?: Yes Result: 5
[2022-07-31] MEDS: DEXTROSE 5%-LACTATED RINGERS 1,000 ML 150 ML IV (17:48)
[2022-07-31] MEDS: PIPERACILLIN/TAZO 3.375 GM in Normal Saline 50 ML IVPB (17:55)
[2022-07-31] MEDS: Insulin REGULAR-Human 100 UNITS/ML UNIT IV (17:58)
[2022-07-31] MEDS: THIAMINE 100 MG in Normal Saline 100 ML 200 MG IVPB (17:58)
[2022-07-31] MEDS: Normal Saline 500 ML 30 ML IV (17:59)
--- NOTE | 2022-07-31 18:03 | W.SURGCON ---
Date of service: 07/31/22 Time of Service: 15:30 Assessment and Plan Assessment and plan (1) Malnutrition: Status: Acute (2) Alcohol withdrawal: Status: Acute (3) Alcohol abuse: Status: Chronic (4) Upper GI bleeding: Status: Acute Assessment and plan: - Probably likely due to gastritis/GERD. Patient has never had a stomach issue in the past or has been on stomach medication. She has never had an EGD. -She should have an EGD at some point when she is medically stable from an anesthesia standpoint -On CT today there are no signs of portal hypertension /varices, so I do not feel that this is an issue for bleeding. -Repeat hemoglobin was stable -Continue with maximum medical therapy including Carafate and IV Protonix. Does not appear to be any indication for Sandostatin at this time Ultrasound in a.m.- -ETOH w/drawl protocol per hospitalist plan egd when stable (5) Hyperglycemia: Status: Acute (6) Anxiety: (7) Depression: History of Present Illness Narrative: ED Notes:Patient has past medical history of EtOH abuse and states that she routinely drinks whiskey.? However, has not been able to have this over the past 24 hours because of the nausea and vomiting.? States that yesterday around 3 PM she awoke from sleep and had an episode of emesis which she states was normal liquids and foodstuffs.? However, she subsequently developed hematemesis and is bringing up some large clots.? Has not had any diarrhea or bright red blood per rectum.? Did not have a bowel movement yesterday.? No previous abdominal surgeries.? States she does have suffer from eating disorder as well.? States that she has had a history of acid reflux but this does not feel the same.? Has not had any syncopal episodes or lightheadedness.? Denies any shortness of breath or chest pain.? States that she is been having some epigastric discomfort fairly continuously since the onset.?? -I saw the patient in the ER at their request. When I saw the patient,she denies ever having a history of any stomach problems in the past. She denies any history of nausea or vomiting. She threw up blood one time today. She has not noticed any blood in her stools. She currently states she has pain in the epigastric position. She has not had any nausea and vomiting since she is in the ER. She is tremulous. She does not take aspirin or NSAIDs on a regular basis She states she has not had any coffee in 2 weeks. She drinks alcohol daily and smokes cigarettes daily. She uses THC for menstrual cramps Review of Systems All systems reviewed & are unremarkable except as noted in HPI and below PFSH All Active Problems Discharge planning issues (Acute) DVT prophylaxis (Acute) Malnutrition (Acute) Alcohol withdrawal (Acute) Alcohol abuse (Chronic) Upper GI bleeding (Acute) Hyperglycemia (Acute) Metabolic acidosis (Acute) SIRS (systemic inflammatory response syndrome) (Acute) Pap smear of cervix with ASCUS, cannot exclude HGSIL (Acute) 05/23 Pap=ASCUS-H, -HR HPV 06/21 Pap-WNL, +HR HPV 09/13 Pap=ASCUS ?HPV Medical History Anxiety Depression Fibromyalgia Surgical History History of bunionectomy of both great toes Family History Paternal Grandfather Heart disease Paternal Grandmother Stroke Mother Hypertension Cancer cervical cancer Sister Cancer cervical cancer Social History Smoking/Tobacco Use Status: Current every day Smoking risk assessment performed?: Yes Alcohol Intake: current Alcohol Intake frequency: 0-2 drinks per day Drug use: Daily Substance use type: marijuana Current gender identity: female Exam Const General: cooperative, in distress, anxious and disheveled Nutritional Appearance: underweight Orientation: oriented to person [facility] Other: No jaundice. Mucous membranes are dry. Resp Effort & Inspection: normal respiratory effort and able to speak in complete sentences Auscultation: clear to auscultation bilaterally Cardio Rate: tachycardic Rhythm: regular rhythm GI Inspection: normal to inspection Palpation: soft Other: Abdomen is soft with good bowel sounds. There is no peritonitis. No hernias. No ascites Extrem Other: Muscle wasting Psych Appearance: grossly normal Speech and Movement: restless Mood: anxious mood Affect: anxious affect Attitude: cooperative Other: The patient has some mild tremors in her hands and appears mildly anxious. Her thought process otherwise appears normal at this time. Results Last Vital Signs Temp 37.0 C 07/31/22 09:27 Pulse 102 H 07/31/22 15:01 Resp 20 07/31/22 09:27 BP 143/100 H 07/31/22 15:01 Pulse Ox 99 07/31/22 15:01 Labs 07/31/22 14:10 07/31/22 15:40 Labs: Laboratory Results - last 24 hr 07/31/22 07/31/22 07/31/22 09:50 09:50 09:50 WBC 34.65 H* RBC 4.78 Hgb 16.8 H Hct 50.6 H MCV 106 H MCH 35.1 H MCHC 33.2 RDW 12.1 Plt Count 388 MPV 9.7 Immature Gran % 0.8 Neutrophils % 92.6 Lymphocytes % 2.1 Monocytes % 4.2 Eosinophils % 0.0 Basophils % 0.3 Nucleated RBC % 0.0 Absolute Neutrophils 32.09 H Absolute Lymphocytes 0.73 L Absolute Monocytes 1.46 H Absolute Eosinophils 0.00 Absolute Basophils 0.10 RBC Morphology See Below Macrocytosis 2+ PT 9.9 INR 1.0 APTT 28.4 VBG pH VBG pCO2 VBG pO2 VBG HCO3 VBG Total CO2 VBG O2 Saturation VBG Base Excess VBG Lactate Sodium 141 Potassium 4.1 Chloride 99 Carbon Dioxide 9.2 L Anion Gap 32.8 H BUN 19 H Creatinine 1.9 H Est GFR (CKD-EPI 2020) 33.39 Glucose 329 H Hemoglobin A1c Calcium 9.8 Magnesium 2.4 Total Bilirubin 0.9 AST 35 ALT 33 Alkaline Phosphatase 137 H Troponin I < 50 Total Protein 9.8 H Albumin 5.2 H Lipase 67 Procalcitonin Urine Color Urine Clarity Urine pH Ur Specific [place] Urine Protein Urine Ketones Urine Blood Urine Nitrite Urine Bilirubin Urine Urobilinogen Ur Leukocyte Esterase Urine RBC Urine WBC Ur Epithelial Cells Urine Crystals Urine Bacteria Urine Casts Urine Mucus Urine Other Ur Culture Indicated? Urine Glucose COVID-19 Source SARS-CoV-2 (PCR) Add-On Test Request Patient ABO/Rh Antibody Screen 07/31/22 07/31/22 07/31/22 09:50 09:50 13:00 WBC RBC Hgb Hct MCV MCH MCHC RDW Plt Count MPV Immature Gran % Neutrophils % Lymphocytes % Monocytes % Eosinophils % Basophils % Nucleated RBC % Absolute Neutrophils Absolute Lymphocytes Absolute Monocytes Absolute Eosinophils Absolute Basophils RBC Morphology Macrocytosis PT INR APTT VBG pH VBG pCO2 VBG pO2 VBG HCO3 VBG Total CO2 VBG O2 Saturation VBG Base Excess VBG Lactate 4.7 H* Sodium Potassium Chloride Carbon Dioxide Anion Gap BUN Creatinine Est GFR (CKD-EPI 2020) Glucose Hemoglobin A1c Calcium Magnesium Total Bilirubin AST ALT Alkaline Phosphatase Troponin I < 50 Total Protein Albumin Lipase Procalcitonin Urine Color Urine Clarity Urine pH Ur Specific [place] Urine Protein Urine Ketones Urine Blood Urine Nitrite Urine Bilirubin Urine Urobilinogen Ur Leukocyte Esterase Urine RBC Urine WBC Ur Epithelial Cells Urine Crystals Urine Bacteria Urine Casts Urine Mucus Urine Other Ur Culture Indicated? Urine Glucose COVID-19 Source SARS-CoV-2 (PCR) Add-On Test Request Patient ABO/Rh O Positive Antibody Screen NEGATIVE 07/31/22 07/31/22 07/31/22 13:00 13:39 13:39 WBC RBC Hgb Hct MCV MCH MCHC RDW Plt Count MPV Immature Gran % Neutrophils % Lymphocytes % Monocytes % Eosinophils % Basophils % Nucleated RBC % Absolute Neutrophils Absolute Lymphocytes Absolute Monocytes Absolute Eosinophils Absolute Basophils RBC Morphology Macrocytosis PT Cancelled INR Cancelled APTT VBG pH VBG pCO2 VBG pO2 VBG HCO3 VBG Total CO2 VBG O2 Saturation VBG Base Excess VBG Lactate 2.2 H* Sodium Potassium Chloride Carbon Dioxide Anion Gap BUN Creatinine Est GFR (CKD-EPI 2020) Glucose Hemoglobin A1c 4.7 Calcium Magnesium Total Bilirubin AST ALT Alkaline Phosphatase Troponin I Total Protein Albumin Lipase Procalcitonin Urine Color Urine Clarity Urine pH Ur Specific [place] Urine Protein Urine Ketones Urine Blood Urine Nitrite Urine Bilirubin Urine Urobilinogen Ur Leukocyte Esterase Urine RBC Urine WBC Ur Epithelial Cells Urine Crystals Urine Bacteria Urine Casts Urine Mucus Urine Other Ur Culture Indicated? Urine Glucose COVID-19 Source SARS-CoV-2 (PCR) Add-On Test Request Patient ABO/Rh Antibody Screen 07/31/22 07/31/22 07/31/22 13:42 14:10 14:10 WBC 28.66 H* RBC 3.95 Hgb 13.8 D Hct 40.7 MCV 103 H MCH 34.9 H MCHC 33.9 RDW 12.0 Plt Count 291 MPV 9.6 Immature Gran % 0.6 Neutrophils % 88.3 Lymphocytes % 4.4 Monocytes % 6.5 Eosinophils % 0.0 Basophils % 0.2 Nucleated RBC % 0.0 Absolute Neutrophils 25.31 H Absolute Lymphocytes 1.26 Absolute Monocytes 1.86 H Absolute Eosinophils 0.00 Absolute Basophils 0.06 RBC Morphology Normal Macrocytosis PT INR APTT VBG pH VBG pCO2 VBG pO2 VBG HCO3 VBG Total CO2 VBG O2 Saturation VBG Base Excess VBG Lactate Sodium Potassium Chloride Carbon Dioxide Anion Gap BUN Creatinine Est GFR (CKD-EPI 2020) Glucose Hemoglobin A1c Calcium Magnesium Total Bilirubin AST ALT Alkaline Phosphatase Troponin I Total Protein Albumin Lipase Procalcitonin Urine Color Urine Clarity Urine pH Ur Specific [place] Urine Protein Urine Ketones Urine Blood Urine Nitrite Urine Bilirubin Urine Urobilinogen Ur Leukocyte Esterase Urine RBC Urine WBC Ur Epithelial Cells Urine Crystals Urine Bacteria Urine Casts Urine Mucus Urine Other Ur Culture Indicated? Urine Glucose COVID-19 Source Nasal/Nares SARS-CoV-2 (PCR) Negative Add-On Test Request Patient ABO/Rh Cancelled Antibody Screen 07/31/22 07/31/22 07/31/22 15:35 15:40 15:40 WBC RBC Hgb Hct MCV MCH MCHC RDW Plt Count MPV Immature Gran % Neutrophils % Lymphocytes % Monocytes % Eosinophils % Basophils % Nucleated RBC % Absolute Neutrophils Absolute Lymphocytes Absolute Monocytes Absolute Eosinophils Absolute Basophils RBC Morphology Macrocytosis PT INR APTT VBG pH 7.34 VBG pCO2 32 L VBG pO2 41 VBG HCO3 17 L VBG Total CO2 16 L VBG O2 Saturation 83 VBG Base Excess -8 L VBG Lactate Sodium 143 Potassium 3.9 Chloride 108 H Carbon Dioxide 18.2 L Anion Gap 16.8 H BUN 15 Creatinine 1.0 Est GFR (CKD-EPI 2020) 72.13 Glucose 124 H Hemoglobin A1c Calcium 9.1 Magnesium Total Bilirubin AST ALT Alkaline Phosphatase Troponin I Total Protein Albumin Lipase Procalcitonin 0.1 Urine Color Urine Clarity Urine pH Ur Specific [place] Urine Protein Urine Ketones Urine Blood Urine Nitrite Urine Bilirubin Urine Urobilinogen Ur Leukocyte Esterase Urine RBC Urine WBC Ur Epithelial Cells Urine Crystals Urine Bacteria Urine Casts Urine Mucus Urine Other Ur Culture Indicated? Urine Glucose COVID-19 Source SARS-CoV-2 (PCR) Add-On Test Request Patient ABO/Rh Antibody Screen 07/31/22 07/31/22 16:45 16:50 WBC RBC Hgb Hct MCV MCH MCHC RDW Plt Count MPV Immature Gran % Neutrophils % Lymphocytes % Monocytes % Eosinophils % Basophils % Nucleated RBC % Absolute Neutrophils Absolute Lymphocytes Absolute Monocytes Absolute Eosinophils Absolute Basophils RBC Morphology Macrocytosis PT INR APTT VBG pH VBG pCO2 VBG pO2 VBG HCO3 VBG Total CO2 VBG O2 Saturation VBG Base Excess VBG Lactate Sodium Potassium Chloride Carbon Dioxide Anion Gap BUN Creatinine Est GFR (CKD-EPI 2020) Glucose Hemoglobin A1c Calcium Magnesium Total Bilirubin AST ALT Alkaline Phosphatase Troponin I Total Protein Albumin Lipase Procalcitonin Urine Color Yellow Urine Clarity Clear Urine pH 6.0 Ur Specific [place] >= 1.030 H Urine Protein 100 H Urine Ketones >=160 H Urine Blood Small H Urine Nitrite Negative Urine Bilirubin Moderate H Urine Urobilinogen 0.2 Ur Leukocyte Esterase Negative Urine RBC 5-10 H Urine WBC 0-2 Ur Epithelial Cells Few Urine Crystals Negative Urine Bacteria Negative Urine Casts Negative Urine Mucus Negative Urine Other Negative Ur Culture Indicated? No Urine Glucose Negative COVID-19 Source SARS-CoV-2 (PCR) Add-On Test Request DONE Patient ABO/Rh Antibody Screen
[2022-07-31 20:29] LABS: BE (Venous) -8 mmol/L (-2-3); HCO3 (Venous) 18 mmol/L (23-28); O2 Sat (Venous) 82 %; TCO2 (Venous) 17 mmol/L (24-29); pCO2 (Venous) 34 mmHg (41-51); pH (Venous) 7.34 (7.31-7.41); pO2 (Venous) 42 mmHg
[2022-07-31 20:32] LABS: Lactate 1.1 mmol/L (0.6-1.4)
[2022-07-31 20:35] LABS: HCT 36.1 % (36.0-46.0); HGB 12.4 g/dL (11.2-15.7)
[2022-07-31 20:56] LABS: Anion Gap 15.9 mmol/L (3-11); BUN 14 mg/dL (7-18); CO2 19.1 mmol/L (21.0-32.0); CREATININE 0.8 mg/dL (0.55-1.02); Calcium 9.2 mg/dL (8.5-10.1); Chloride 109 mmol/L (98-107); Estimated GFR 94.28 (mL/min/1.73m2); Glucose 142 mg/dL (74-106); Potassium 3.2 mmol/L (3.5-5.1); Sodium 144 mmol/L (136-145)
[2022-07-31] MEDS: Insulin Aspart 300 UNITS/3 ML PEN SC (21:58)
[2022-07-31 22:06] LABS: Ferritin 175 ng/mL (8-252)
[2022-08-01] VITALS (62 sets, daily range): BP systolic 116–134; BP diastolic 77–96; PULSE 76–112; RESP 15–37; TEMP 36.8–37.8; O2SAT 98–100
[2022-08-01] MEDS: PIPERACILLIN/TAZO 3.375 GM in Normal Saline 50 ML IVPB ×4 (00:43→18:14)
[2022-08-01] MEDS: Acetaminophen 325 MG TAB PO (00:48)
[2022-08-01] MEDS: Sucralfate 1 GM TAB PO ×4 (00:48→20:16)
[2022-08-01 00:49] LABS: BE (Venous) -3 mmol/L (-2-3); HCO3 (Venous) 22 mmol/L (23-28); O2 Sat (Venous) 92 %; TCO2 (Venous) 20 mmol/L (24-29); pCO2 (Venous) 33 mmHg (41-51); pH (Venous) 7.43 (7.31-7.41); pO2 (Venous) 52 mmHg
[2022-08-01] MEDS: Ondansetron 4 MG/2 ML VIAL IVP ×2 (00:58→08:32)
[2022-08-01 01:05] LABS: Anion Gap 9.7 mmol/L (3-11); BUN 11 mg/dL (7-18); CO2 23.3 mmol/L (21.0-32.0); CREATININE 0.7 mg/dL (0.55-1.02); Calcium 9.2 mg/dL (8.5-10.1); Chloride 110 mmol/L (98-107); Estimated GFR 110.67 (mL/min/1.73m2); Glucose 166 mg/dL (74-106); Potassium 3.2 mmol/L (3.5-5.1); Sodium 143 mmol/L (136-145)
[2022-08-01] MEDS: ACETAMINOPHEN 1,000 MG/100 ML BTL 400 MG IVPB (01:18)
[2022-08-01] MEDS: Insulin Aspart 300 UNITS/3 ML PEN SC ×2 (03:56→10:40)
[2022-08-01] MEDS: Pantoprazole 40 MG VIAL IVP ×2 (05:03→16:28)
[2022-08-01 05:20] LABS: BE (Venous) 0 mmol/L (-2-3); HCO3 (Venous) 24 mmol/L (23-28); O2 Sat (Venous) 90 %; TCO2 (Venous) 22 mmol/L (24-29); pCO2 (Venous) 35 mmHg (41-51); pH (Venous) 7.44 (7.31-7.41); pO2 (Venous) 48 mmHg
[2022-08-01 05:22] LABS: Abs Immature Grans 0.08 10^3/uL (0.0-0.06); Absolute Monocyte Count 1.05 10^3/uL (0.1-0.8); Basophils % 0.3; Eosinophils % 0.2; HCT 31.8 % (36.0-46.0); HGB 11.2 g/dL (11.2-15.7); Immature Grans % 0.4; Lymphocytes % 14.5; MCH 35.8 pg (27.0-33.0); MCHC 35.2 % (32.0-36.0); MCV 102 fL (80-95); MPV 9.7 fL (8.0-11.0); Monocytes % 5.8; Neutrophils % 78.8; Platelet Count 218 10^3/uL (130-400); RBC 3.13 10^6/uL (3.93-5.22); RDW 12.2 % (11.7-14.6); RDW-SD 44.5 fL; WBC 18.03 10^3/uL (4.4-10.8)
[2022-08-01 05:32] LABS: Absolute Basophil Count 0.05 10^3/uL (0.0-0.2); Absolute Eosinophil Count 0.04 10^3/uL (0.0-0.7); Absolute Lymphocyte Count 2.61 10^3/uL (1.2-3.4); Absolute Neutrophil Count 14.21 10^3/uL (1.2-6.7)
[2022-08-01 05:40] LABS: Iron 103 ug/dL (50-170); Total Iron Binding Capacity 226 ug/dL (250-450); Transferrin Sat 46 % (15-50)
[2022-08-01 05:43] LABS: Hemoglobin A1C 4.7 % (<5.7)
[2022-08-01 06:04] LABS: BUN 11 mg/dL (7-18); CREATININE 0.6 mg/dL (0.55-1.02); Calcium 9.1 mg/dL (8.5-10.1); Chloride 111 mmol/L (98-107); Estimated GFR 114.86 (mL/min/1.73m2); Folate 7.2 ng/mL (8.6-20.0); Glucose 141 mg/dL (74-106); Magnesium 1.7 mg/dL (1.8-2.4); Potassium 3.1 mmol/L (3.5-5.1); Sodium 145 mmol/L (136-145); Vitamin B12 526 pg/mL (193-986)
--- NOTE | 2022-08-01 08:02 | PDOC.CMIN ---
- If Service Date Differs Date of service: 08/01/22 Time of Service: 08:02 Care Management Initial Assess REASON FOR HOSPITALIZATION:: SIRS PAST MEDICAL HISTORY/PAST SURGICAL HISTORY:: All Active Problems (Updated 07/31/22 @ 17:11 by Nathalia Vail MD). Discharge planning issues (Acute). DVT prophylaxis (Acute). Malnutrition (Acute). Alcohol withdrawal (Acute). Alcohol abuse (Chronic). Upper GI bleeding (Acute). Hyperglycemia (Acute). Metabolic acidosis (Acute). SIRS (systemic inflammatory response syndrome) (Acute). Pap smear of cervix with ASCUS, cannot exclude HGSIL (Acute). 05/23 Pap=ASCUS-H, -HR HPV. 06/21 Pap-WNL, +HR HPV. 09/13 Pap=ASCUS ?HPV. Medical History (Updated 07/31/22 @ 17:11 by Nathalia Vail MD). Anxiety. Depression. Fibromyalgia. Surgical History (Updated 07/31/22 @ 17:11 by Nathalia Vail MD). History of bunionectomy of both great toes PREVIOUS FUNCTIONAL STATUS/SOCIAL/FAMILY SUPPORTS:: Tyler is currently staying in [facility] at her mother's home. She is from [place] but stays with her Mom for a few months every year. 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 She has no children and is independent at baseline. CURRENT FUNCTIONAL STATUS:: Tyler was sitting up in bed when CM met with her. She was reserved but polite and courteous when answering questions. Tyler explained why she was in [place] which is to spend time with her mother. She stated that her Mom has some health issues but is well supported in the community. Tyler anticipates remaining in [place] until October or November. She does not have a PCP here but is agreeable to seeing a physician for a one time visit after discharge. ADVANCE DIRECTIVES:: none on file Has patient been provided with info about the portal/API?: Yes Did the patient sign up for the portal?: No CODE STATUS:: Full Code INSURANCE COVERAGE / FINANCIAL ISSUES:: BC BS - out of state CURRENT HOME/COMMUNITY SERVICES/EQUIPMENT:: none PRIMARY CARE PHYSICIAN:: none POTENTIAL DISCHARGE NEEDS:: establish with a new PCP PATIENT/FAMILY EDUCATION NEEDS:: Review of discharge instructions, activity, limitations, follow up plan, Ask Me Three TRANSPORTATION:: via private vehicle with family PLAN:: Anticipate Tyler will be discharged home with no new services, although she would likely benefit from subtance use treatrment. She will follow up with the PCP appointment made at discharge and will transport with family. CM will follow and assess for ongoing discharge concerns.
[2022-08-01] MEDS: MAGNESIUM SULFATE 2 GM/50 ML BAG IVPB (08:31)
[2022-08-01] MEDS: POTASSIUM CHLORIDE 20 MEQ/100 ML BAG 50 MEQ IVPB ×2 (08:32→10:33)
[2022-08-01] MEDS: Thiamine 100 MG TAB PO (08:33)
[2022-08-01] MEDS: Folic Acid 1 MG TAB PO (08:33)
[2022-08-01] MEDS: Multivitamin TAB 1 TAB PO (08:33)
--- NOTE | 2022-08-01 09:00 | DI.US_ITS ---
Exam(s) US ABDOMEN EXAM: US ABDOMEN CLINICAL HISTORY: liver/ETOH abuse TECHNIQUE: Ultrasound abdomen performed using standard protocol. COMPARISON: CT CT CHEST/ABD/PEL WO from 07/31/2022 FINDINGS: ABDOMINAL AORTA AND IVC: Visualized portions normal caliber. PANCREAS: Normal where visualized. LIVER: Normal. Hepatopedal flow in the Portal Vein. GALLBLADDER:No evidence of cholelithiasis. No evidence of wall thickening. No pericholecystic fluid i dentified. BILIARY SYSTEM: Common bile duct measures < 7 mm. No intrahepatic biliary ductal dilation. CUEVAS'S SIGN: Negative. KIDNEYS: Kidneys are symmetric in size. No evidence of renal calculi. No evidence of hydronephrosis. No renal mass or cyst identified. SPLEEN: No gross abnormality. Partially obscured due to bowel in patient body habitus. ASCITES: None seen. IMPRESSION: Normal sonographic appearance of the upper abdomen. DATA REPOSITORY:
[2022-08-01] MEDS: LORazepam 2 MG/ML VIAL 1 MG IVP (10:34)
[2022-08-01] MEDS: Normal Saline Flush 10 ML SYR IVP ×2 (10:34→16:28)
--- NOTE | 2022-08-01 13:45 | PHA.REVIEW2 ---
Pharmacy Admission Review - Admission Clinical Review (Last Reviewed 07/31/22 @ 20:49 by Tiffanie Jacome DO) Discharge planning issues (Acute) DVT prophylaxis (Acute) Malnutrition (Acute) Alcohol withdrawal (Acute) Upper GI bleeding (Acute) Hyperglycemia (Acute) Metabolic acidosis (Acute) SIRS (systemic inflammatory response syndrome) (Acute) No Known Allergies Allergy (Verified 06/07/21 15:06) Resuscitation Status Full Code Height 5 ft 7 in Weight 49.3 kg - Renal Dosing Renal Dosing: BUN 11 mg/dL (7-18) 08/01/22 05:10 Creatinine 0.6 mg/dL (0.55-1.02) 08/01/22 05:10 Medications needing adjustments: Reviewed (crcl = 94, no adjustments needed) - Anticoagulation Anticoagulation: Hgb 11.2 g/dL (11.2-15.7) 08/01/22 05:10 Hct 31.8 % (36.0-46.0) L 08/01/22 05:10 Plt Count 218 10^3/uL (130-400) 08/01/22 05:10 INR Cancelled 07/31/22 13:39 Creatinine 0.6 mg/dL (0.55-1.02) 08/01/22 05:10 DVT Prophylaxis: N/A (SCDs - GI bleeding) Therapeutic Anticoagulation: N/A - Opiate Usage Evaluate Pain Scale/Pains Meds: N/A - Relevant Labs Sodium 145 mmol/L (136-145) 08/01/22 05:10 Potassium 3.1 mmol/L (3.5-5.1) L 08/01/22 05:10 Chloride 111 mmol/L (98-107) H 08/01/22 05:10 Magnesium 1.7 mg/dL (1.8-2.4) L 08/01/22 05:10 Electrolytes, C-Reactive P, ESR: Reviewed (2g IV mag, 40 mEq IV K+ today. lactate = 2.2 yesterday, now 1.1) - DM Control DM Control: Glucose 141 mg/dL (74-106) H 08/01/22 05:10 Hemoglobin A1c 4.7 % (<5.7) 08/01/22 05:10 Finger Stick Blood Glucose 157 Finger Stick Blood Glucose 157 Finger Stick Blood Glucose 157 DM Control: Reviewed (?DKA, does not have previous diabetes diagnosis. a1c = 4.7) - Cardiac Review Cardiac Review: Troponin I < 50 ng/L (<or=60) 07/31/22 13:00 BP, HR, EF%: Reviewed (BP running slightly high 120s/90s, tachycardic) - Qtc Review QTc: Reviewed (QTc = 441 on 07/31/22) If Elevated, List meds needing intervention: n/a - IV to PO Switch IV Medications: Reviewed (not tolerating a lot of PO d/t nausea/vomiting, continue IV meds for now) - Home Meds Home Med List reviewed: N/A (no home meds reported, nothing on external fill history) - Current meds Current Medication Order Review: Reviewed - Comments Comments/Follow Ups: PAULO - benzo protocol, receiving thiamine & folic acid. protonix & sucralfate for GI bleeding Antibiotic Activity - Pharmacy Antibiotic Review Pharmacy Antibiotic Activity: Reviewed, no change - Antibiotic Information Antibiotic Review Info: zosyn 3.375 q6h for SIRS, possible aspiration pneumonia
--- NOTE | 2022-08-01 13:56 | W.PM.PROGNOT ---
Date of Service Date of service: 08/01/22 Time of Service: 09:30 Assessment and Plan Assessment and plan (1) SIRS (systemic inflammatory response syndrome): Status: Acute Assessment and plan: In setting of a fever, infectious etiologies need to be considered. However, DKA, GI bleeding, esophageal process could all be contributors. Blood cultures are pending. Urinalysis negative. Chest imaging negative, but has a cough and w/ concern for aspiration is receiving zosyn. Continue empiric zosyn. Metabolic acidosis has resolved. Remains on IVF. (2) Metabolic acidosis: Status: Resolved Assessment and plan: Due to possible DKA (BG >300, high anion gap), starvation ketoacidosis, dehydration, lactic acidosis. I am awaiting [facility] [place] Endocrinology call back to discuss this case to direct further care. Continue IVF as still not tolerating PO. (3) Hyperglycemia: Status: Resolved Assessment and plan: A1C of 4.7 suggest that the hyperglycemia. ?DKA. As above - await endocrinology phone call. Await fructosamine. (4) Upper GI bleeding: Status: Acute Assessment and plan: Continue IV protonix + carafate. NPO Trend H/H. Hgn of 11, down from 16.8, I suspect is actually more dilutional. (5) Alcohol withdrawal: Status: Acute Assessment and plan: Treat with the benzodiazepine protocol in the ICU (6) Alcohol abuse: Status: Chronic Assessment and plan: Replete folate (deficient). Continue MVI, thiamine. (7) Malnutrition: Status: Acute Assessment and plan: Await nutrition c/s. Patient diagnosed herself with an eating d/o. Her BMI is 17 kg/m2. (8) DVT prophylaxis: Status: Acute Assessment and plan: SCDS hold chemical dvt ppx in light of GI bleeding (9) Discharge planning issues: Status: Acute Assessment and plan: Full code Keep in ICU as the patient is not tolerating PO and may require further pharmacologic therapy for EtOH w/d. Subjective Subjective Interval history since last seen: Tyler is still nauseated and having epigastric discomfort. She did vomit (nonbloody). She denies dizzienss, chest pain, thinks she might be short of breath, continues to have a dry cough. Her CIWA scores were 7 and 8 this morning. Exam Narrative Exam Narrative: General: Tremulous malnourished appearing female, anxious, A&Ox3 HEENT: Atraumatic, normocephalic, EOMI, dry MM, black-stained tongue (presumably from hematemesis), no submandibular or cervical lymphadenopathy, no goiter or JVD Cardiovascular: RRR, no m/r/g Lungs: CTAB, dry cough Gastrointestinal: soft, tender in epigastrium, nondistended Extremities: no edema BLEs, 1+ pedal pulses B, no c/c. Objective Last Vital Signs Temp 37.2 C 08/01/22 12:00 Pulse 97 H 08/01/22 12:00 Resp 20 08/01/22 12:00 BP 121/92 H 08/01/22 12:00 Pulse Ox 99 08/01/22 12:00 Laboratory Results - last 24 hr 07/31/22 07/31/22 07/31/22 13:39 14:10 14:10 WBC 28.66 H* RBC 3.95 Hgb 13.8 D Hct 40.7 MCV 103 H MCH 34.9 H MCHC 33.9 RDW 12.0 Plt Count 291 MPV 9.6 Immature Gran % 0.6 Neutrophils % 88.3 Lymphocytes % 4.4 Monocytes % 6.5 Eosinophils % 0.0 Basophils % 0.2 Nucleated RBC % 0.0 Absolute Neutrophils 25.31 H Absolute Lymphocytes 1.26 Absolute Monocytes 1.86 H Absolute Eosinophils 0.00 Absolute Basophils 0.06 RBC Morphology Normal VBG pH VBG pCO2 VBG pO2 VBG HCO3 VBG Total CO2 VBG O2 Saturation VBG Base Excess VBG Lactate Sodium Potassium Chloride Carbon Dioxide Anion Gap BUN Creatinine Est GFR (CKD-EPI 2020) Glucose Hemoglobin A1c 4.7 Calcium Magnesium Iron TIBC Transferrin % Sat Ferritin Vitamin B12 Folate Procalcitonin Urine Color Urine Clarity Urine pH Ur Specific [place] Urine Protein Urine Ketones Urine Blood Urine Nitrite Urine Bilirubin Urine Urobilinogen Ur Leukocyte Esterase Urine RBC Urine WBC Ur Epithelial Cells Urine Crystals Urine Bacteria Urine Casts Urine Mucus Urine Other Ur Culture Indicated? Urine Glucose COVID-19 Source Nasal/Nares SARS-CoV-2 (PCR) Negative Add-On Test Request 07/31/22 07/31/22 07/31/22 15:35 15:40 15:40 WBC RBC Hgb Hct MCV MCH MCHC RDW Plt Count MPV Immature Gran % Neutrophils % Lymphocytes % Monocytes % Eosinophils % Basophils % Nucleated RBC % Absolute Neutrophils Absolute Lymphocytes Absolute Monocytes Absolute Eosinophils Absolute Basophils RBC Morphology VBG pH 7.34 VBG pCO2 32 L VBG pO2 41 VBG HCO3 17 L VBG Total CO2 16 L VBG O2 Saturation 83 VBG Base Excess -8 L VBG Lactate Sodium 143 Potassium 3.9 Chloride 108 H Carbon Dioxide 18.2 L Anion Gap 16.8 H BUN 15 Creatinine 1.0 Est GFR (CKD-EPI 2020) 72.13 Glucose 124 H Hemoglobin A1c Calcium 9.1 Magnesium Iron TIBC Transferrin % Sat Ferritin Vitamin B12 Folate Procalcitonin 0.1 Urine Color Urine Clarity Urine pH Ur Specific [place] Urine Protein Urine Ketones Urine Blood Urine Nitrite Urine Bilirubin Urine Urobilinogen Ur Leukocyte Esterase Urine RBC Urine WBC Ur Epithelial Cells Urine Crystals Urine Bacteria Urine Casts Urine Mucus Urine Other Ur Culture Indicated? Urine Glucose COVID-19 Source SARS-CoV-2 (PCR) Add-On Test Request 07/31/22 07/31/22 07/31/22 16:45 16:50 20:21 WBC RBC Hgb Hct MCV MCH MCHC RDW Plt Count MPV Immature Gran % Neutrophils % Lymphocytes % Monocytes % Eosinophils % Basophils % Nucleated RBC % Absolute Neutrophils Absolute Lymphocytes Absolute Monocytes Absolute Eosinophils Absolute Basophils RBC Morphology VBG pH VBG pCO2 VBG pO2 VBG HCO3 VBG Total CO2 VBG O2 Saturation VBG Base Excess VBG Lactate Sodium Potassium Chloride Carbon Dioxide Anion Gap BUN Creatinine Est GFR (CKD-EPI 2020) Glucose Hemoglobin A1c Calcium Magnesium Iron TIBC Transferrin % Sat Ferritin 175 Vitamin B12 Folate Procalcitonin Urine Color Yellow Urine Clarity Clear Urine pH 6.0 Ur Specific [place] >= 1.030 H Urine Protein 100 H Urine Ketones >=160 H Urine Blood Small H Urine Nitrite Negative Urine Bilirubin Moderate H Urine Urobilinogen 0.2 Ur Leukocyte Esterase Negative Urine RBC 5-10 H Urine WBC 0-2 Ur Epithelial Cells Few Urine Crystals Negative Urine Bacteria Negative Urine Casts Negative Urine Mucus Negative Urine Other Negative Ur Culture Indicated? No Urine Glucose Negative COVID-19 Source SARS-CoV-2 (PCR) Add-On Test Request DONE 07/31/22 07/31/22 07/31/22 20:21 20:21 20:21 WBC RBC Hgb Hct MCV MCH MCHC RDW Plt Count MPV Immature Gran % Neutrophils % Lymphocytes % Monocytes % Eosinophils % Basophils % Nucleated RBC % Absolute Neutrophils Absolute Lymphocytes Absolute Monocytes Absolute Eosinophils Absolute Basophils RBC Morphology VBG pH 7.34 VBG pCO2 34 L VBG pO2 42 VBG HCO3 18 L VBG Total CO2 17 L VBG O2 Saturation 82 VBG Base Excess -8 L VBG Lactate 1.1 Sodium 144 Potassium 3.2 L Chloride 109 H Carbon Dioxide 19.1 L Anion Gap 15.9 H BUN 14 Creatinine 0.8 Est GFR (CKD-EPI 2020) 94.28 Glucose 142 H Hemoglobin A1c Calcium 9.2 Magnesium Iron TIBC Transferrin % Sat Ferritin Vitamin B12 Folate Procalcitonin Urine Color Urine Clarity Urine pH Ur Specific [place] Urine Protein Urine Ketones Urine Blood Urine Nitrite Urine Bilirubin Urine Urobilinogen Ur Leukocyte Esterase Urine RBC Urine WBC Ur Epithelial Cells Urine Crystals Urine Bacteria Urine Casts Urine Mucus Urine Other Ur Culture Indicated? Urine Glucose COVID-19 Source SARS-CoV-2 (PCR) Add-On Test Request 07/31/22 08/01/22 08/01/22 20:21 00:44 00:44 WBC RBC Hgb 12.4 Hct 36.1 MCV MCH MCHC RDW Plt Count MPV Immature Gran % Neutrophils % Lymphocytes % Monocytes % Eosinophils % Basophils % Nucleated RBC % Absolute Neutrophils Absolute Lymphocytes Absolute Monocytes Absolute Eosinophils Absolute Basophils RBC Morphology VBG pH 7.43 H VBG pCO2 33 L VBG pO2 52 VBG HCO3 22 L VBG Total CO2 20 L VBG O2 Saturation 92 VBG Base Excess -3 L VBG Lactate Sodium 143 Potassium 3.2 L Chloride 110 H Carbon Dioxide 23.3 Anion Gap 9.7 BUN 11 Creatinine 0.7 Est GFR (CKD-EPI 2020) 110.67 Glucose 166 H Hemoglobin A1c Calcium 9.2 Magnesium Iron TIBC Transferrin % Sat Ferritin Vitamin B12 Folate Procalcitonin Urine Color Urine Clarity Urine pH Ur Specific [place] Urine Protein Urine Ketones Urine Blood Urine Nitrite Urine Bilirubin Urine Urobilinogen Ur Leukocyte Esterase Urine RBC Urine WBC Ur Epithelial Cells Urine Crystals Urine Bacteria Urine Casts Urine Mucus Urine Other Ur Culture Indicated? Urine Glucose COVID-19 Source SARS-CoV-2 (PCR) Add-On Test Request 08/01/22 08/01/22 08/01/22 05:10 05:10 05:10 WBC RBC Hgb Hct MCV MCH MCHC RDW Plt Count MPV Immature Gran % Neutrophils % Lymphocytes % Monocytes % Eosinophils % Basophils % Nucleated RBC % Absolute Neutrophils Absolute Lymphocytes Absolute Monocytes Absolute Eosinophils Absolute Basophils RBC Morphology VBG pH VBG pCO2 VBG pO2 VBG HCO3 VBG Total CO2 VBG O2 Saturation VBG Base Excess VBG Lactate Sodium 145 Potassium 3.1 L Chloride 111 H Carbon Dioxide 25.0 Anion Gap 9.0 BUN 11 Creatinine 0.6 Est GFR (CKD-EPI 2020) 114.86 Glucose 141 H Hemoglobin A1c 4.7 Calcium 9.1 Magnesium 1.7 L Iron 103 TIBC 226 L Transferrin % Sat 46 Ferritin Vitamin B12 526 Folate 7.2 L Procalcitonin Urine Color Urine Clarity Urine pH Ur Specific [place] Urine Protein Urine Ketones Urine Blood Urine Nitrite Urine Bilirubin Urine Urobilinogen Ur Leukocyte Esterase Urine RBC Urine WBC Ur Epithelial Cells Urine Crystals Urine Bacteria Urine Casts Urine Mucus Urine Other Ur Culture Indicated? Urine Glucose COVID-19 Source SARS-CoV-2 (PCR) Add-On Test Request 08/01/22 08/01/22 05:10 05:10 WBC 18.03 H RBC 3.13 L Hgb 11.2 Hct 31.8 L MCV 102 H MCH 35.8 H MCHC 35.2 RDW 12.2 Plt Count 218 MPV 9.7 Immature Gran % 0.4 Neutrophils % 78.8 Lymphocytes % 14.5 Monocytes % 5.8 Eosinophils % 0.2 Basophils % 0.3 Nucleated RBC % 0.0 Absolute Neutrophils 14.21 H Absolute Lymphocytes 2.61 Absolute Monocytes 1.05 H Absolute Eosinophils 0.04 Absolute Basophils 0.05 RBC Morphology VBG pH 7.44 H VBG pCO2 35 L VBG pO2 48 VBG HCO3 24 VBG Total CO2 22 L VBG O2 Saturation 90 VBG Base Excess 0 VBG Lactate Sodium Potassium Chloride Carbon Dioxide Anion Gap BUN Creatinine Est GFR (CKD-EPI 2020) Glucose Hemoglobin A1c Calcium Magnesium Iron TIBC Transferrin % Sat Ferritin Vitamin B12 Folate Procalcitonin Urine Color Urine Clarity Urine pH Ur Specific [place] Urine Protein Urine Ketones Urine Blood Urine Nitrite Urine Bilirubin Urine Urobilinogen Ur Leukocyte Esterase Urine RBC Urine WBC Ur Epithelial Cells Urine Crystals Urine Bacteria Urine Casts Urine Mucus Urine Other Ur Culture Indicated? Urine Glucose COVID-19 Source SARS-CoV-2 (PCR) Add-On Test Request PAWSS Have you Been Recently Intoxicated or Drunk Within the Last 30 days?: Yes Have you Ever Experienced Previous Episodes of Alcohol Withdrawal?: No Have you ever Experienced Withdrawal Seizures?: No Have you ever Experienced Delirium Tremens(DT)s?: No Have you ever undergone Alcohol Rehabilitation Treatment (i.e, inpt ot outpatient treatment programs)?: No Have you ever Experienced Blackouts?: Yes Have you ever Combined Alcohol with other Downers within the last 90 days?: No Have you ever Combined Alcohol with any other Substance of Abuse during the last 90 days?: Yes Positive Blood Alcohol level on Presentation? [PCS.BAL]: Unable to Obtain Evidence of Increased Autonomic Activity (i.e. 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
[2022-08-01] MEDS: Lactated Ringers 1,000 ML 150 ML IV ×2 (15:06→21:33)
[2022-08-01 19:31] LABS: Lab Add On Test DONE
[2022-08-02] VITALS (26 sets, daily range): BP systolic 112–141; BP diastolic 75–99; PULSE 72–99; RESP 13–30; TEMP 36.6–37.8; O2SAT 94–100
[2022-08-02] MEDS: PIPERACILLIN/TAZO 3.375 GM in Normal Saline 50 ML IVPB ×2 (00:25→06:07)
[2022-08-02] MEDS: Sucralfate 1 GM TAB PO ×4 (00:44→19:17)
[2022-08-02] MEDS: Melatonin 3 MG TAB PO ×2 (00:45→21:45)
[2022-08-02] MEDS: Lactated Ringers 1,000 ML 150 ML IV (04:18)
[2022-08-02] MEDS: Pantoprazole 40 MG VIAL IVP ×2 (04:27→16:02)
[2022-08-02 06:04] LABS: Abs Immature Grans 0.04 10^3/uL (0.0-0.06); Absolute Basophil Count 0.05 10^3/uL (0.0-0.2); Absolute Lymphocyte Count 2.93 10^3/uL (1.2-3.4); Absolute Monocyte Count 0.64 10^3/uL (0.1-0.8); Absolute Neutrophil Count 6.92 10^3/uL (1.2-6.7); Basophils % 0.5; Eosinophils % 0.9; HCT 30.8 % (36.0-46.0); HGB 10.8 g/dL (11.2-15.7); Immature Grans % 0.4; Lymphocytes % 27.4; MCH 35.4 pg (27.0-33.0); MCHC 35.1 % (32.0-36.0); MCV 101 fL (80-95); MPV 10.1 fL (8.0-11.0); Neutrophils % 64.8; Platelet Count 197 10^3/uL (130-400); RBC 3.05 10^6/uL (3.93-5.22); RDW 12.1 % (11.7-14.6); RDW-SD 43.8 fL; WBC 10.68 10^3/uL (4.4-10.8)
[2022-08-02 06:16] LABS: Anion Gap 5.5 mmol/L (3-11); BUN 4 mg/dL (7-18); CO2 29.5 mmol/L (21.0-32.0); CREATININE 0.4 mg/dL (0.55-1.02); Calcium 8.1 mg/dL (8.5-10.1); Chloride 107 mmol/L (98-107); Estimated GFR 126.65 (mL/min/1.73m2); Glucose 91 mg/dL (74-106); Magnesium 1.6 mg/dL (1.8-2.4); Sodium 142 mmol/L (136-145)
[2022-08-02 06:30] LABS: Potassium 2.9 mmol/L (3.5-5.1)
[2022-08-02] MEDS: Thiamine 100 MG TAB PO (07:57)
[2022-08-02] MEDS: Folic Acid 1 MG TAB PO ×2 (07:58→19:16)
[2022-08-02] MEDS: Multivitamin TAB 1 TAB PO (07:58)
[2022-08-02 08:25] LABS: Lab Add On Test DONE
[2022-08-02 08:36] LABS: C-Reactive Protein 2.47 mg/dL (0.0-0.3)
[2022-08-02] MEDS: POTASSIUM CHLORIDE 10 MEQ/100 ML BAG 100 MEQ IVPB ×4 (08:44→14:50)
[2022-08-02] MEDS: MAGNESIUM SULFATE 4 GM/100 ML BAG IVPB (08:45)
[2022-08-02] MEDS: Potassium Chloride Liquid 20 MEQ PKT PO (08:46)
[2022-08-02] MEDS: Magnesium Oxide 400 MG TAB 800 MG PO ×2 (08:47→19:16)
[2022-08-02 08:56] LABS: Procalcitonin < 0.1 ng/mL
--- NOTE | 2022-08-02 08:58 | PDOC.CMPRO ---
- If Service Date Differs Date of service: 08/02/22 Time of Service: 08:58 Care Management Progress Note S/O:Tyler was lying in bed with the covers over her head when CM met with her but uncovered her head when CM called her name. Tyler stated that she feels better than she did yesterday but is still not well. CM asked her if she has ever sought treatment for her alcohol use or had a [employer] and Tyler responded that she had not. She went on to explain that she does not feel she has a problem even though she may drink more than we think she should. She informed CM that she feels it is all related to her stress, anxiety and depression. The provider ordered an antidepressant as well as an appetite stimulant for her today. In addition to the GI issues, Tyler has a self-reported eating disorder.. Her electrolytes are abnormally low (K, mag and calcium) and her BMI is 17. A: Tyler is a 42 year old woman admitted on with a GI bleed P:Anticipate Tyler will be discharged home with no new services, although she would likely benefit from substance use treatrment and nutrition counseling. She will follow up with the PCP appointment made at discharge and will transport with family. CM will follow and assess for ongoing discharge concerns.
[2022-08-02] MEDS: Normal Saline Flush 10 ML SYR IVP (09:33)
[2022-08-02 09:42] LABS: Bilirubin Negative (Negative); Blood Negative (Negative); Clarity Clear (Clear); Glucose Negative (Negative); Ketones 15 mg/dL (Negative); Leukocyte Esterase Negative (Negative); Nitrite Negative (Negative); Urobilinogen 0.2 mg/dL (Up to 0.2); pH 7.5 (5-8)
--- NOTE | 2022-08-02 10:02 | PGE_ITS ---
Date of Service Date of service: 08/02/22 Time of Service: 10:02 Assessment and Plan Assessment and plan (1) SIRS (systemic inflammatory response syndrome): Status: Acute Assessment and plan: In setting of a fever, infectious etiologies need to be considered. However patient denies any sputum production or dyspnea CT scan showed no pulmonary infiltrates and she denies any dysuria. Blood cultures no growth to date Urinalysis negative for any infectious evidence. Chest imaging negative, but has a cough and w/ concern for aspiration is receiving zosyn. WBCs have normalized. Procalcitonin is negative x2 sets. CRP remains mildly elevated. DC IV Zosyn can switch over to an oral Augmentin and would treat empirically for possible aspiration event for maximum of 5 days. Patient is clinically stable and can be transferred out to the medical/surgical floor. (2) Metabolic acidosis: Status: Resolved Assessment and plan: Secondary to lactic acidosis, starvation ketosis. (3) Hyperglycemia: Status: Resolved Assessment and plan: Normal A1c of 4.6%. This makes DKA unlikely. Beta hydroxybutyrate still pending. Fasting glucose was normal this morning at 91. (4) Upper GI bleeding: Status: Acute Assessment and plan: Continue Protonix and Carafate. I have added Magic mouthwash with viscous lidocaine and Benadryl and an acids to help with her esophageal pain. (5) Alcohol withdrawal: Status: Acute Assessment and plan: Patient was treated with low-dose benzodiazepines and is showing no signs of withdrawal. CIWA scores were low at 0. Historically she has not had no history of alcohol withdrawal. (6) Alcohol abuse: Status: Chronic Assessment and plan: Replete folate (deficient). Continue MVI, thiamine. (7) Malnutrition: Status: Acute Assessment and plan: Await nutrition c/s. Patient diagnosed herself with an eating d/o. Her BMI is 17 kg/m2. We will add protein shakes to her diet and advance her diet to clear liquids with instruction to advance as tolerated. (8) DVT prophylaxis: Status: Acute Assessment and plan: SCDS hold chemical dvt ppx in light of GI bleeding (9) Discharge planning issues: Status: Acute Assessment and plan: Full code No longer requiring ICU coverage will transfer to the medical/surgical floor. Subjective Subjective Interval history since last seen: Patient denies any history of diabetes mellitus or family history of diabetes mellitus. Explained to her that her glycohemoglobin A1c was 4.6% effectively eliminating any diagnosis of diabetes mellitus. I do not feel we need to wait for the beta hydroxybutyrate to come back to rule out DKA. I think the most likely explanation is she had starvation ketosis with elevated lactate level. This is all resolved with IV fluid hydration. This morning she still has significant esophageal pain which was exacerbated this morning when I ordered some potassium supplementation. She still has electrolyte problems and low magnesium of 1.6 and potassium of 2.9. She admits that she has been depressed t he last couple years with COVID and isolation also dealing with her mother had life-threatening illness. Patient missed to drinking a pint of whiskey a day. She denies a history of acute alcohol withdrawals or seizures. She is not suicidal. Exam Narrative Exam Narrative: Middle-aged female who appears to be underweight and fatigued. HEENT she has sunken eyes Lungs are clear to auscultation Heart is regular rate and rhythm Abdomen is scaphoid soft and nontender except in the epigastrium she is mildly tender with deep palpation. She has normal bowel sounds. Extremities without peripheral cyanosis or edema. Objective Last Vital Signs Temp 36.8 C 08/02/22 08:11 Pulse 95 H 08/02/22 09:00 Resp 18 08/02/22 09:01 BP 112/84 08/02/22 09:00 Pulse Ox 98 08/02/22 08:11 Laboratory Results - last 24 hr 08/01/22 08/02/22 08/02/22 17:24 05:29 05:29 WBC 10.68 RBC 3.05 L Hgb 10.8 L Hct 30.8 L MCV 101 H MCH 35.4 H MCHC 35.1 RDW 12.1 Plt Count 197 MPV 10.1 Immature Gran % 0.4 Neutrophils % 64.8 Lymphocytes % 27.4 Monocytes % 6.0 Eosinophils % 0.9 Basophils % 0.5 Nucleated RBC % 0.0 Absolute Neutrophils 6.92 H Absolute Lymphocytes 2.93 Absolute Monocytes 0.64 Absolute Eosinophils 0.10 Absolute Basophils 0.05 Sodium 142 Potassium 2.9 L Chloride 107 Carbon Dioxide 29.5 Anion Gap 5.5 BUN 4 L Creatinine 0.4 L Est GFR (CKD-EPI 2020) 126.65 Glucose 91 Calcium 8.1 L Magnesium 1.6 L C-Reactive Protein Procalcitonin Urine Color Urine Clarity Urine pH Ur Specific [place] Urine Protein Urine Ketones Urine Blood Urine Nitrite Urine Bilirubin Urine Urobilinogen Ur Leukocyte Esterase Urine Glucose Add-On Test Request DONE 08/02/22 08/02/22 08/02/22 05:29 05:29 05:29 WBC RBC Hgb Hct MCV MCH MCHC RDW Plt Count MPV Immature Gran % Neutrophils % Lymphocytes % Monocytes % Eosinophils % Basophils % Nucleated RBC % Absolute Neutrophils Absolute Lymphocytes Absolute Monocytes Absolute Eosinophils Absolute Basophils Sodium Potassium Chloride Carbon Dioxide Anion Gap BUN Creatinine Est GFR (CKD-EPI 2020) Glucose Calcium Magnesium C-Reactive Protein 2.47 H Procalcitonin < 0.1 Urine Color Urine Clarity Urine pH Ur Specific [place] Urine Protein Urine Ketones Urine Blood Urine Nitrite Urine Bilirubin Urine Urobilinogen Ur Leukocyte Esterase Urine Glucose Add-On Test Request DONE 08/02/22 09:30 WBC RBC Hgb Hct MCV MCH MCHC RDW Plt Count MPV Immature Gran % Neutrophils % Lymphocytes % Monocytes % Eosinophils % Basophils % Nucleated RBC % Absolute Neutrophils Absolute Lymphocytes Absolute Monocytes Absolute Eosinophils Absolute Basophils Sodium Potassium Chloride Carbon Dioxide Anion Gap BUN Creatinine Est GFR (CKD-EPI 2020) Glucose Calcium Magnesium C-Reactive Protein Procalcitonin Urine Color Yellow Urine Clarity Clear Urine pH 7.5 Ur Specific [place] 1.020 Urine Protein Negative Urine Ketones 15 H Urine Blood Negative Urine Nitrite Negative Urine Bilirubin Negative Urine Urobilinogen 0.2 Ur Leukocyte Esterase Negative Urine Glucose Negative Add-On Test Request PAWSS Have you Been Recently Intoxicated or Drunk Within the Last 30 days?: Yes Have you Ever Experienced Previous Episodes of Alcohol Withdrawal?: No Have you ever Experienced Withdrawal Seizures?: No Have you ever Experienced Delirium Tremens(DT)s?: No Have you ever undergone Alcohol Rehabilitation Treatment (i.e, inpt ot outpatient treatment programs)?: No Have you ever Experienced Blackouts?: Yes Have you ever Combined Alcohol with other Downers within the last 90 days?: No Have you ever Combined Alcohol with any other Substance of Abuse during the last 90 days?: Yes Positive Blood Alcohol level on Presentation? [PCS.BAL]: Unable to Obtain Evidence of Increased Autonomic Activity (i.e. HR>120, tremor, sweating, agitation, nausea)?: Yes Result: 5 Time Spent with Patient Time Spent with Patient: 35-49 minutes Time was spent: preparing to see the patient(eg.review tests), obtaining and/or reviewing separately otained hiistory, ordering medications,tests, procedures, referring, communicating with other health respiratory care instructor, indepentently interpreting results, counseling the patient and care coordination
[2022-08-02] MEDS: Dronabinol 2.5 MG CAP 5 MG PO ×2 (11:08→16:02)
[2022-08-02] MEDS: Normal Saline 500 ML 30 ML IV (12:46)
--- NOTE | 2022-08-02 13:24 | W.NUTCONSULT ---
Date of service: 08/02/22 Time of Service: 13:24 Nutritional Consult ASSESSMENT: Met with Tyler in ICU today. Admitted with GI bleed, high blood sugars most likely due to starvation ketosis, alcohol abuse, malnutrition. She reports she has had an eating disorder since 2019 secondary to depression and anxiety. States that her weight prior to eating disorder was around 130 lbs. 5'7 127 lbs BMI: 20 [place] Body Weight: 130-135 lbs. Tyler states that eating and thinking about chewing makes her feel nauseous. In view of her weight being only 3 lbs less than her typical weight, she most likely is eating/drinking her calories. She looks thin but nourished. INTERVENTION: Provided Portia with my contact information to pursue nutritional counseling in outpatient setting. Time Spent in Nutritional Counseling and Treatment: 10
[2022-08-02] MEDS: Potassium Chloride 10 MEQ CAPCR 20 MEQ PO ×2 (14:51→19:16)
[2022-08-02] MEDS: Protein Nutritional Supplement 16 GM 1 OUNCE PACKET PO ×2 (14:52→19:17)
[2022-08-02 17:42] LABS: Fructosamine 247 mcmol/L (200 - 285)
[2022-08-02 18:23] LABS: Potassium 3.6 mmol/L (3.5-5.1)
[2022-08-02 18:49] LABS: Beta-Hydroxybutyrate 5.9 mmol/L (<0.4)
[2022-08-03 02:58] VITALS: BP 114/78; PULSE 80; RESP 18; TEMP 37.1; O2SAT 98
[2022-08-03] MEDS: Sucralfate 1 GM TAB PO ×3 (04:02→14:04)
[2022-08-03] MEDS: Pantoprazole 40 MG VIAL IVP (04:03)
[2022-08-03] MEDS: Normal Saline Flush 10 ML SYR IVP (04:03)
[2022-08-03] MEDS: Dronabinol 2.5 MG CAP 5 MG PO (06:46)
[2022-08-03 06:50] LABS: Abs Immature Grans 0.05 10^3/uL (0.0-0.06); Absolute Basophil Count 0.03 10^3/uL (0.0-0.2); Absolute Eosinophil Count 0.13 10^3/uL (0.0-0.7); Absolute Lymphocyte Count 2.02 10^3/uL (1.2-3.4); Absolute Monocyte Count 0.67 10^3/uL (0.1-0.8); Absolute Neutrophil Count 8.59 10^3/uL (1.2-6.7); Basophils % 0.3; Eosinophils % 1.1; HCT 32.8 % (36.0-46.0); HGB 11.2 g/dL (11.2-15.7); Immature Grans % 0.4; Lymphocytes % 17.6; MCH 35.4 pg (27.0-33.0); MCHC 34.1 % (32.0-36.0); MCV 104 fL (80-95); MPV 10.1 fL (8.0-11.0); Monocytes % 5.8; Neutrophils % 74.8; Platelet Count 181 10^3/uL (130-400); RBC 3.16 10^6/uL (3.93-5.22); RDW 12.2 % (11.7-14.6); RDW-SD 46.1 fL; WBC 11.49 10^3/uL (4.4-10.8)
[2022-08-03 07:00] VITALS: BP 112/79; PULSE 88; RESP 16; TEMP 37.4; O2SAT 99
[2022-08-03 07:17] LABS: ALT 23 U/L (14-59); AST 20 U/L (15-37); Albumin 2.9 g/dL (3.4-5.0); Alkaline Phosphatase 74 U/L (46-116); Anion Gap 5.6 mmol/L (3-11); BUN 2 mg/dL (7-18); Bilirubin, Total 0.4 mg/dL (0.2-1.0); CO2 27.4 mmol/L (21.0-32.0); CREATININE 0.6 mg/dL (0.55-1.02); Calcium 8.3 mg/dL (8.5-10.1); Chloride 108 mmol/L (98-107); Estimated GFR 114.86 (mL/min/1.73m2); Glucose 104 mg/dL (74-106); Magnesium 2.2 mg/dL (1.8-2.4); Potassium 3.5 mmol/L (3.5-5.1); Sodium 141 mmol/L (136-145); Total Protein 5.7 g/dL (6.4-8.2)
[2022-08-03] MEDS: Magnesium Oxide 400 MG TAB 800 MG PO (08:12)
[2022-08-03] MEDS: Folic Acid 1 MG TAB PO (08:12)
[2022-08-03] MEDS: Protein Nutritional Supplement 16 GM 1 OUNCE PACKET PO ×2 (08:12→14:04)
[2022-08-03] MEDS: Potassium Chloride 10 MEQ CAPCR 20 MEQ PO (08:13)
[2022-08-03] MEDS: Thiamine 100 MG TAB PO (08:13)
[2022-08-03] MEDS: Multivitamin TAB 1 TAB PO (08:13)
[2022-08-03 11:18] VITALS: BP 114/75; PULSE 82; RESP 16; TEMP 37.5; O2SAT 99
--- NOTE | 2022-08-03 12:57 | W.PM.PROGNOT ---
Date of Service Date of service: 08/03/22 Time of Service: 12:57 Assessment and Plan Assessment and plan (1) Upper GI bleeding: Status: Acute Assessment and plan: Discharged home on Carafate 1 g before meals and at bedtime along with Protonix 40 mg daily. Case management to set her up to see Dr. Franklin Torres as an outpatient for an outpatient EGD. (2) Alcohol withdrawal: Status: Acute Assessment and plan: Patient was treated with low-dose benzodiazepines and is showing no signs of withdrawal. CIWA scores were low at 0. Historically she has not had no history of alcohol withdrawal. (3) Alcohol abuse: Status: Chronic Assessment and plan: Replete folate (deficient). Continue MVI, thiamine. (4) Malnutrition: Status: Acute Assessment and plan: Patient met with Cathryn Lomas yesterday. Cathryn provided patient with contact information to pursue further nutritional counseling in outpatient setting. (5) Discharge planning issues: Status: Acute Assessment and plan: Discharge home this afternoon. Subjective Subjective Interval history since last seen: Tyler states that she tolerated her diet this morning. She is eating soft foods and liquids. She met with a dietitian and she is going to plan on follow-up with the dietitian as an outpatient to try to get on a high-protein diet that meets her vegetarian needs. I told Tyler that she needs to follow-up with the surgeons to have an EGD performed as an outpatient to evaluate her esophageal thickening. In the interim she will remain on medications for reflux esophagitis including Protonix and Carafate. She seems to be tolerating the citalopram I will keep her on that for her depression and anxiety disorder and I will keep her on the dronabinol to stimulate her appetite. She will remain on thiamine and folic acid and multivitamin to correct her low folic acid level and to prevent thiamine deficiency given her history of alcoholism. She has had no further signs of alcohol withdrawal and she feels she is ready to return home. She was with her mom locally here in the wintertime but the rest of the time she is in [place]. Exam Narrative Exam Narrative: Tyler is lying in bed she is alert and oriented person place time circumstance she just finished breakfast. No acute distress. No abdominal discomfort or bloating. Objective Last Vital Signs Temp 37.5 C 08/03/22 11:18 Pulse 82 08/03/22 11:18 Resp 16 08/03/22 11:18 BP 114/75 08/03/22 11:18 Pulse Ox 99 08/03/22 11:18 Laboratory Results - last 24 hr 07/30/22 07/31/22 08/02/22 17:24 17:29 18:05 WBC RBC Hgb Hct MCV MCH MCHC RDW Plt Count MPV Immature Gran % Neutrophils % Lymphocytes % Monocytes % Eosinophils % Basophils % Nucleated RBC % Absolute Neutrophils Absolute Lymphocytes Absolute Monocytes Absolute Eosinophils Absolute Basophils Sodium Potassium 3.6 Chloride Carbon Dioxide Anion Gap BUN Creatinine Est GFR (CKD-EPI 2020) Glucose Fructosamine 247 Calcium Magnesium Total Bilirubin AST ALT Alkaline Phosphatase Total Protein Albumin B-Hydroxybutyrate 5.9 H 08/03/22 08/03/22 06:29 06:29 WBC 11.49 H RBC 3.16 L Hgb 11.2 Hct 32.8 L MCV 104 H MCH 35.4 H MCHC 34.1 RDW 12.2 Plt Count 181 MPV 10.1 Immature Gran % 0.4 Neutrophils % 74.8 Lymphocytes % 17.6 Monocytes % 5.8 Eosinophils % 1.1 Basophils % 0.3 Nucleated RBC % 0.0 Absolute Neutrophils 8.59 H Absolute Lymphocytes 2.02 Absolute Monocytes 0.67 Absolute Eosinophils 0.13 Absolute Basophils 0.03 Sodium 141 Potassium 3.5 Chloride 108 H Carbon Dioxide 27.4 Anion Gap 5.6 BUN 2 L Creatinine 0.6 Est GFR (CKD-EPI 2020) 114.86 Glucose 104 Fructosamine Calcium 8.3 L Magnesium 2.2 Total Bilirubin 0.4 AST 20 ALT 23 Alkaline Phosphatase 74 Total Protein 5.7 L Albumin 2.9 L B-Hydroxybutyrate PAWSS Have you Been Recently Intoxicated or Drunk Within the Last 30 days?: Yes Have you Ever Experienced Previous Episodes of Alcohol Withdrawal?: No Have you ever Experienced Withdrawal Seizures?: No Have you ever Experienced Delirium Tremens(DT)s?: No Have you ever undergone Alcohol Rehabilitation Treatment (i.e, inpt ot outpatient treatment programs)?: No Have you ever Experienced Blackouts?: Yes Have you ever Combined Alcohol with other Downers within the last 90 days?: No Have you ever Combined Alcohol with any other Substance of Abuse during the last 90 days?: Yes Positive Blood Alcohol level on Presentation? [PCS.BAL]: Unable to Obtain Evidence of Increased Autonomic Activity (i.e. HR>120, tremor, sweating, agitation, nausea)?: Yes Result: 5 Time Spent with Patient Time Spent with Patient: <25 minutes Time was spent: preparing to see the patient(eg.review tests), ordering medications,tests, procedures, counseling the patient and care coordination
--- NOTE | 2022-08-03 13:09 | DSE_ITS ---
Date of service: 08/03/22 Time of Service: 13:09 DS: Diagnosis Discharge Diagnosis (1) Upper GI bleeding: Status: Acute Asessment and Plan: likely d/t erosive esophagitits. patient dc home on protonix and carafate and to follow up w/ surgery for outpatient EGD. (2) Alcohol withdrawal: Status: Resolved Asessment and Plan: patient never really experienced any significant signs/symptoms of alcohol withdrawal but did exhibit signs of severe dehyration and starvation ketosis (3) Alcohol abuse: Status: Chronic (4) Malnutrition: Status: Acute Asessment and Plan: patient was placed on citalopram for her depression and anxiety and put on Marinol for her depressed appetite. (5) Metabolic acidosis: Status: Resolved Asessment and Plan: patient experience a high anion gap lactic acidosis from starvation ketosis and dehydration. Although she presented w/ hyperglycemia this quickly resolved w/ iv fluid hydration and her glychemoglobin A1C was normal and subsequent fasting glucose was normal. (6) SIRS (systemic inflammatory response syndrome): Status: Resolved (7) Hyperglycemia: Status: Resolved Discharge Plan Disposition Patient Disposition: Home Condition: Good Discharge Details Reason For Visit: Alcohol Withdrawal,Hematemesis, metabolic acidosi Admit Date/Time: 07/31/22 14:54 Admit Provider: Nathalia Vail Attending Provider: Nathalia Vail Primary Care Provider: None,None Hospital Course Hospital Course: 42 yr old female w/ hx of alcoholism (drinks about a pint of whiskey daily) who has never had alcohol withdrawal or seizures and pmh of acid reflux. She came to the ED d/t nausea, vomiting and hematemesis. She had not eaten solids and drank very little fluids for pst few days and had not been able to keep down any alcohol for over 24 hrs. ON arrival to the ED she believed to be in acute alcohol withdrawl w/ tachycardia although she had no diaphoresis and no tremors and no hallucinations. However she was treated w/ ativan 1 mg and placed on CIWA monitoring and on the benzodiazepine alcohol withdrawal protocol w/ thiamine, folic acid, MVS and prn lorazepam, however her CIWA scores never went above an 8 and she only required one more dose of lorazepam 1 mg during her hospitalization. However she was found to be severely dehydrated and to have a lactic acid metabolic acidosis w/ ketones in her urine and to have hyperglycemia on admission. Blood lactate was 4.7 on admission and decline to 2.2 at admission after 3 liters of iv fluids and was normal at 1.1 by the first evening of her admission. Her glucose was 329 on her admission labs and her BUN 19 and creatinine 1.9 w/ CO2 of 9.2 and AG of 32 which declined to CO2 of 18 and AG 16 after 3 liters of iv fluids and her glucose came down to 124. Patient was admitted to the ICU and put on the benzodiazepine alcohol withdrawal protocol. She was given zofran for nausea , begun on protonix and carafate for her GI bleeding. Serial CBC and BMP were monitored. CT scan of her chest, abdomen and pelvis were done on admisson and demonstrated circumferential thickening of her esophagus suspicous for esophagitis vs other inflammatory or infiltrative process. Thickening involved the length of her esophagus. Surgical consult was obtained w/ Dr. Jacome who recommended treating her for esophagitis w/ carafate and protonix and treat the alcohol withdrawal and arrange EGD when she is medically stable. Patient's nausea resolved. She had no further hematemesis. Her diet was advance from clear to soft solid foods. Because of her history of eating disorder, dietary consult was obtained and I put her on m arinol to stimulate her appetite. She also was put on citalopram for her depression and anxiety disorder. A glycohemoglobin A1C came back normal at 4.7% and subsequent fasting glucose was normal at 104. Endocrinology phone consult was obtained by the admitting hospitalist, Dr. Vail, and a beta hydroxybutyrate level was recommended to determine whether or not her initial anion gap metabolic acidosis was d/t DKA. At her discharge the level had not come back but after discharge did return high at 5.9 mmol/L (normal <0.4). Patient initially had a leukocytosis of 28,000 and concern was raised that she may have had an infection from possible aspiration although her CXR did not show any infiltrates. Nevertheless she was treated w/ Zosyn and transitioned to Augmentin upon discharge. Her WBC declined from 28,000 to 11,000. Her procalcitonin was never high (0.1 on admission and <0.1 on discharge). she was found to have low folate levels at 7.2 and was put on folic acid and thiamine replacment. She was discharge home in improved condition w/ Rx as listed below for citalopram and dronabinol for her appetite and depression and carafate and protonix for her esophagitis and MVS, thiamine and folic acid for her nutrition. She was set up to see vehicle fare collector in follow up and referred to surgery for outpatient EGD. Home Meds and New Rx's Prescriptions: New multivitamin [Multiple Vitamins] Tablet 1 tab PO QAM Qty: 30 1RF sucralfate 1 gram Tablet 1 g PO Q6H Qty: 120 0RF dronabinol 2.5 mg Capsule 5 mg PO BID@0700,1600 Qty: 60 0RF citalopram 20 mg Tablet 20 mg PO DAILY Qty: 30 1RF magnesium oxide 400 mg (241.3 mg magnesium) Tablet 800 mg PO DAILY Qty: 30 0RF folic acid 1 mg Tablet 1 mg PO DAILY Qty: 30 1RF thiamine mononitrate (vit B1) [Vitamin B-1 (mononitrate)] 100 mg Tablet 100 mg PO QAM Qty: 30 1RF pantoprazole [Protonix] 40 mg tablet,delayed release (DR/EC) 40 mg PO DAILY Qty: 30 1RF Discharge Instructions Instructions: Diet for Stomach Ulcers and Gastritis (GEN), Esophagitis (DC) Stand Alone Forms: Nursing Discharge Form Referrals: Cathryn Lomas [ACADEMIC GUIDANCE SPECIALIST] - Bill Kohler MD [ NON-[facility] STAFF PHYSICIAN] - 08/15/22 9:00 am (arrive 15 minute prior) Franklin Torres MD [ [facility] STAFF PHYSICIAN] - 08/15/22 2:00 pm (clinic follow up to set up EGD as outpatient for evaluation of esophageal wall thickening, GI bleeding/ Office appointment) Activity:: Activity as Tolerated Equipment/Supplies:: No Equipment Needed Diet:: soft foods Discharge Orders Discharge Orders: Discharge Order (Routine); Ordered 08/03/22 Ordered By: Rajan Bennett Discharge Data Discharge Date/Time-TO BE ENTERED AT DEPARTURE: 08/03/22 15:10 DS: Summary Time Spent with Patient providing and/or coordinating discharge services: Greater than 30 minutes Status at Discharge Functional status at discharge: independent ambulation Overall status at discharge: patient is progressing back to baseline Mental Status: mental status grossly normal Speech and Movement: speech and movement normal Mood: congruent mood Affect: normal affect Exam Narrative Exam Narrative: Tyler is lying in bed she is alert and oriented person place time circumstance she just finished breakfast. No acute distress. No abdominal discomfort or bloating. Psych Mental Status: mental status grossly normal Speech and Movement: speech and movement normal Mood: congruent mood Affect: normal affect DS: Data Vitals/I&O Vitals and I&O: Vital Signs Temperature 37.5 C 08/03/22 11:18 Temperature Source Tympanic 08/03/22 11:18 Pulse 82 08/03/22 11:18 Pulse Rhythm Regular 08/03/22 07:15 Pulse 90 08/02/22 09:01 Respiratory Rate 16 08/03/22 11:18 Respiratory Effort Normal, Non-Labored 08/03/22 07:15 Respiratory Depth Normal 08/03/22 07:15 Respiratory Pattern Normal 08/03/22 07:15 Blood Pressure 114/75 08/03/22 11:18 Blood Pressure Mean 91 08/02/22 09:00 Blood Pressure Position Right Lateral 08/02/22 04:41 Pulse Oximetry 99 08/03/22 11:18 Oxygen Delivery Method Room Air 08/03/22 11:18 Oxygen Flow Rate 0 08/03/22 11:18 Pain Level 0 08/03/22 11:18 Intake & Output 08/02/22 08/03/22 08/03/22 23:59 11:59 23:59 Intake Total 547.5 / 2547.5 976.667 / 976.667 Balance 547.5 / 422.5 976.667 / 976.667 Weight 52.8 kg Intake: IV 547.5 / 2447.5 876.667 / 876.667 Oral 100 / 100 Other: Comment independent voided directly in toilet several times in night. Voiding Methods Toilet Data Completed and Pending Labs on day of discharge: Labs from last 24 hours 08/03/22 08/03/22 08/02/22 06:29 06:29 18:05 WBC 11.49 H RBC 3.16 L Hgb 11.2 Hct 32.8 L MCV 104 H MCH 35.4 H MCHC 34.1 RDW 12.2 Plt Count 181 MPV 10.1 Immature Gran % 0.4 Neutrophils % 74.8 Lymphocytes % 17.6 Monocytes % 5.8 Eosinophils % 1.1 Basophils % 0.3 Nucleated RBC % 0.0 Absolute Neutrophils 8.59 H Absolute Lymphocytes 2.02 Absolute Monocytes 0.67 Absolute Eosinophils 0.13 Absolute Basophils 0.03 Sodium 141 Potassium 3.5 3.6 Chloride 108 H Carbon Dioxide 27.4 Anion Gap 5.6 BUN 2 L Creatinine 0.6 Est GFR (CKD-EPI 2020) 114.86 Glucose 104 Fructosamine Calcium 8.3 L Magnesium 2.2 Total Bilirubin 0.4 AST 20 ALT 23 Alkaline Phosphatase 74 Total Protein 5.7 L Albumin 2.9 L B-Hydroxybutyrate 07/31/22 07/30/22 17:29 17:24 WBC RBC Hgb Hct MCV MCH MCHC RDW Plt Count MPV Immature Gran % Neutrophils % Lymphocytes % Monocytes % Eosinophils % Basophils % Nucleated RBC % Absolute Neutrophils Absolute Lymphocytes Absolute Monocytes Absolute Eosinophils Absolute Basophils Sodium Potassium Chloride Carbon Dioxide Anion Gap BUN Creatinine Est GFR (CKD-EPI 2020) Glucose Fructosamine 247 Calcium Magnesium Total Bilirubin AST ALT Alkaline Phosphatase Total Protein Albumin B-Hydroxybutyrate 5.9 H Preliminary micro results at discharge 07/31/22 17:29 Blood Culture - Preliminary Blood NO GROWTH 48 HOURS 07/31/22 17:18 Blood Culture - Preliminary Blood NO GROWTH 48 HOURS PFSH All Active Problems (Updated 08/04/22 @ 00:01 by QUYEN SOTO) Malnutrition (Acute) Alcohol abuse (Chronic) Upper GI bleeding (Acute) Pap smear of cervix with ASCUS, cannot exclude HGSIL (Acute) 05/23 Pap=ASCUS-H, -HR HPV / Pap-WNL, +HR HPV / Pap=ASCUS ?HPV Medical History Anxiety Depression Fibromyalgia Surgical History History of bunionectomy of both great toes Family History Paternal Grandfather Heart disease Paternal Grandmother Stroke Mother Hypertension Cancer cervical cancer Sister Cancer cervical cancer Social History Smoking/Tobacco Use Status: Current every day Smoking risk assessment performed?: Yes Alcohol Intake: current Alcohol Intake frequency: 0-2 drinks per day Drug use: Daily Substance use type: marijuana Current gender identity: female Time Spent with Patient Time Spent with Patient: <45 minutes Time was spent: preparing to see the patient(eg.review tests), ordering medications,tests, procedures, counseling the patient and care coordination
--- NOTE | 2022-08-03 13:44 | PDOC.CMDIS ---
- If Service Date Differs Date of service: 08/03/22 Time of Service: 13:44 LACE Index Scoring Tool - Questions: Length of Stay (in days): 3 Acuity (Admit via E.D.?): Yes E.D. Visits: 1 - Answers: Total Score: 7 Risk of Readmission: Low Risk Care Management Discharge Reason for Hospitalization: SIRS Discharge Plan: Tyler will be discharged home with no new services. She will follow up with the PCP appointment made at discharge as well as with general surgery for a possible endoscopy. She will transport with home with her mother. Patient/Family Education Needs: Review of discharge instructions, activity, limitations, follow up plan, Ask Me Three
== END 2022-08-03 15:10 | disposition home or self-care (01) | DRG 369 ==
LOC: ER 15:54 → ICU 16:21 → MS 08-02 14:37
PROVIDERS: Internal Medicine; Surgery; Admitting Provider Internal Medicine; Emergency Provider Physician Assistant; Visit Provider Internal Medicine
DX: K21.01 Gastro-esophageal reflux disease with esophagitis, with bleeding (principal); E46 Unspecified protein-calorie malnutrition; F10.139 Alcohol abuse with withdrawal, unspecified; R65.10 Systemic inflammatory response syndrome (SIRS) of non-infectious origin without acute organ dysfunction; Z68.1 Body mass index [BMI] 19.9 or less, adult; E87.29 Other acidosis; F17.210 Nicotine dependence, cigarettes, uncomplicated; F12.90 Cannabis use, unspecified, uncomplicated; R00.0 Tachycardia, unspecified; R50.9 Fever, unspecified; F41.9 Anxiety disorder, unspecified; F32.A Depression, unspecified; M79.7 Fibromyalgia; F50.9 Eating disorder, unspecified; E86.0 Dehydration; R73.9 Hyperglycemia, unspecified; E83.42 Hypomagnesemia; E87.6 Hypokalemia; R10.13 Epigastric pain; E88.89 Other specified metabolic disorders
CPT/HCPCS: 36415; 36416; 71250; 80048; 80053; 81025; 82805; 82962; 83690; 84145; 86850; 86900; 86901; 87040; 87635; 93005; 96361; 96374; 96375; 99285; 74176; 76700; 81003; 81015; 82010; 82607; 82728; 82746; 82985; 83036; 83540; 83550; 83605; 83735; 84132; 84484; 85014; 85018; 85025; 85610; 85730; 86140; 93010; 99232; 99233; 99239; 99291; J0131; J1200; J2060; J2405; J2543; J2765; J3475; J3480

== ENCOUNTER 2022-09-13 12:27 | Day surgery (SDC) | payer BC, SELFPAY ==
--- NOTE | 2022-09-13 10:56 | W.PM.DSUDISC ---
Date of service: 09/13/22 Time of Service: 14:10 Discharge Plan Disposition Patient Disposition: Home Condition: Good Discharge Details Reason For Visit: Esophagogastroduodenoscopy Attending Provider: Franklin Torres Primary Care Provider: Bill Kohler Home Meds and New Rx's Prescriptions: Continued multivitamin [Multiple Vitamins] Tablet 1 tab PO QAM Qty: 30 1RF sucralfate 1 gram Tablet 1 g PO Q6H Qty: 120 0RF dronabinol 2.5 mg Capsule 5 mg PO BID@0700,1600 Qty: 60 0RF citalopram 20 mg Tablet 20 mg PO DAILY Qty: 30 1RF magnesium oxide 400 mg (241.3 mg magnesium) Tablet 800 mg PO DAILY Qty: 30 0RF folic acid 1 mg Tablet 1 mg PO DAILY Qty: 30 1RF thiamine mononitrate (vit B1) [Vitamin B-1 (mononitrate)] 100 mg Tablet 100 mg PO QAM Qty: 30 1RF pantoprazole [Protonix] 40 mg tablet,delayed release (DR/EC) 40 mg PO DAILY Qty: 30 1RF Discharge Instructions Instructions: Duodenitis (GEN) Additional Instructions: Tyler, we were able to complete your upper endoscopy today without any difficulty. You had some very mild inflammation around your duodenum, that is typically described as duodenitis. This is usually caused by overproduction of acid in the stomach, and on occasion an infection called Helicobacter pylori. I performed biopsies to help delineate that. The preliminary treatment is with Protonix and sucralfate, which you are already prescribed. You also have some mild changes around your gastroesophageal junction that seem consistent with gastroesophageal reflux disease. Technically, it does not appear to meet clinical criteria of Vásquez's esophagus. But I did perform some biopsies here. If those are normal, I do not think you need to have any more upper endoscopies. If they show signs of metaplasia, which is changes in the types of cells around this area, then you will need to have another endoscopy in the next 3 to 5 years. Otherwise, your next best option for protecting this area is to stop smoking tobacco. Once I have the results of all the biopsies I will be in touch and let you know what to do next. 1. If tolerated, consume a soft, low fiber diet for 1-2 days. [address] Do not drive, drink alcohol, operate machinery, make critical decisions, or do activities that require coordination or balance for 24 hours. 3. You may experience a sore throat for 24 to 48 hours. You may use throat lozenges or gargle with warm salt water to relieve the discomfort. 4. Because air was put into your stomach during the procedure, you may experience some belching. 5. Go directly to the emergency room if you notice any of the following: Develop chills (warm to touch), or if you have a thermometer and your temperature is above 101 Difficulty breathing or difficultly swallowing Persistent vomiting Severe abdominal pain, other than gas cramps Severe chest pain Black, tarry stools Any bleeding ? exceeding one tablespoon 6. Call your physician if the site where your intravenous was started becomes red, swollen, painful, and warm to touch. 7. Your physician has reviewed your pre-procedure medications. Please continue to take those medications as previously ordered. You will be given specific information/education regarding any changes to your medications before leaving. Activity:: Activity as Tolerated Diet:: As Tolerated
--- NOTE | 2022-09-13 10:58 | ENDO_ITS ---
Date of service: 09/13/22 Time of Service: 14:13 Endoscopy Report DATE OF PROCEDURE: 09/13/22 PRE-OP DIAGNOSIS: Upper GI bleeding POST-OP DIAGNOSIS: other (Duodenitis) PROCEDURE: EGD with biopsies SURGEON: Franklin Torres ANESTHESIA TYPE: General:No Airway ESTIMATED BLOOD LOSS: 10 PATHOLOGY: other (Duodenal, gastric antral, gastric body, GE junction biopsies) COMPLICATIONS: None DISPOSITION: same day INDICATIONS: Tyler is a 42-year-old woman with a history of alcohol and tobacco use, who was recently hospitalized with some symptoms of upper gastrointestinal hemorrhage. Furthermore, CAT scan demonstrated thickening of the esophagus. FINDINGS: Mild duodenitis PROCEDURE DESCRIPTION: After the initiation of monitored anesthetic care, and with the assistance of a bite block, I advanced a standard gastroscope through the mouth past the hypopharynx and into the esophagus.? Under the direct vision of the scope, I advanced down the esophagus into the stomach.? I did not see any signs of esophageal variceal disease. Once I entered the stomach, I performed a brief inspection, followed by retroflexion towards the gastric cardia.? This appeared normal.? After that, I gently advanced the scope around the incisura angularis and examined the pylorus.? This also appeared normal.? Next, I advanced the scope through the pylorus into the duodenum.? There were 2, punctate areas of erythema that seem consistent with some mild duodenitis. I do not believe these are discrete duodenal ulcers. There are no visible vessels. There are no indicators of recent bleeding. There were no abnormalities.? I was able to visualize bile draining into the duodenum through the ampulla Vater. ?I perform some random biopsies of the duodenum. Next, I began retracting the endoscope.? I backed the scope up into the stomach. I carefully examined it once again. I did not see any signs of portal hypertensive gastropathy. I did not see any gastric ulcers. I did perform random biopsies of the gastric antrum and body. I then brought the camera up across the gastroesophageal junction, which was measured at 40 cm from the incisors. There was some mild irregularity of the Z- line, which was right around 39 cm. I performed four-quadrant biopsies of the gastroesophageal junction. ?Finally, I withdrew the scope along the length of the esophagus taking great care to examine the entirety of the mucosa.? I did not appreciate any abnormalities.
--- NOTE | 2022-09-13 12:11 | W.ANESPRE ---
General Info Date of Service Date Performed: 09/13/22 Height: 5 ft 7 in Weight: 57.72 kg Body Mass Index (BMI): 19.9 Surgical Procedure: Operation Date: 09/13/22 13:50 Proposed Procedure Side Surgeon p Gastroscopy Franklin Torres MD Meds Allergies and Home Medications Allergies Allergy/AdvReac Type Severity Reaction Status Date / Time No Known Allergies Allergy Verified 09/13/22 12:40 Home Medication Medication Instructions Recorded citalopram 20 mg tablet 20 mg PO DAILY #30 tabs 08/03/22 dronabinol 2.5 mg capsule 5 mg PO BID@0700,1600 #60 caps 08/03/22 folic acid 1 mg tablet 1 mg PO DAILY #30 tabs 08/03/22 magnesium oxide 400 mg (241.3 mg 800 mg PO DAILY #30 tabs 08/03/22 magnesium) tablet multivitamin (Multiple Vitamins 1 tab PO QAM #30 tabs 08/03/22 tablet) pantoprazole 40 mg tablet,delayed 40 mg PO DAILY #30 tabs 08/03/22 release (Protonix) sucralfate 1 gram tablet 1 g PO Q6H #120 tabs 08/03/22 thiamine mononitrate (vit B1) 100 100 mg PO QAM #30 tabs 08/03/22 mg tablet (Vitamin B-1 (mononitrate)) Current Visit Medications: Current Medications Generic Name Dose Route Start Last Admin Trade Name Freq PRN Reason Stop Dose Admin Ringer's Solution 1,000 mls @ 80 mls/hr 09/13/22 06:00 IV 09/13/22 16:00 INFUSION MALDONADO IV Miscellaneous Supplies 1 each 09/13/22 06:00 Iv Access IV 09/13/22 23:59 DIRECTED MALDONADO Sodium Chloride 0 ml 09/13/22 06:00 Normal Saline Flush 10 Ml Syr IV 09/13/22 23:59 PRN PRN Sodium Chloride 0 ml 09/13/22 06:00 Normal Saline 10 Ml Vial IJ 09/13/22 23:59 DIRECTED PRN Sterile Water 0 ml 09/13/22 06:00 Water,Injection,Sterile 10 Ml Vial IJ 09/13/22 23:59 DIRECTED PRN PFSH Active Problems Active Problems: Problem Status Onset Code Malnutrition E46 Alcohol abuse F10.10 Upper GI bleeding K92.2 Pap smear of cervix with ASCUS, cannot exclude HGSIL R87.611 Medical History Medical History Anxiety Depression Fibromyalgia Medical History Comments:: Daily marijauna Surgical History Surgical History History of bunionectomy of both great toes Tobacco Smoking/Tobacco Use Status: Current every day Alcohol Alcohol Intake: current Alcohol intake frequency: 0-2 drinks per day Substance Use Substance use: Daily Substance use type: marijuana Vital Signs and Lab Results Vital Signs Most Recent Vital Signs in EMR: Temp Pulse Resp BP Pulse Ox 36.8 C 81 18 112/88 99 09/13/22 12:35 09/13/22 12:35 09/13/22 12:35 09/13/22 12:35 09/13/22 12:35 Lab Results Blood Type / Crossmatch: No Data to Display Complete Blood Count: No Data to Display Complete Metabolic Panel: No Data to Display Liver Function Panel: No Data to Display Coagulation Panel: No Data to Display Cardiac Panel: No Data to Display Arterial Blood Gas: No Data to Display Venous Blood Gas: No Data to Display Pancreas Panel: No Data to Display Thyroid Panel: No Data to Display Infectious Disease: No Data to Display Blood Cultures: No Data to Display Toxicology Panel: No Data to Display Panel: No Data to Display Imaging and Studies Imaging and Studies Study information below may be from another EMR and interpreted by another provider. Please see original notes in EMR for more complete details. EKG Summary: 07/26: sinus tach, LAE. Anesthesia Assessment and Plan Anesthesia History Personal History: No History of Anesthesia Complications Family History: No Family History of Anesthesia Complications Exercise Tolerance Exercise Tolerance: Metabolic Equivalents>4 Cardiac & Pulmonary Exam Cardiac Exam: Normal S1/S2 Heart Sounds Pulmonary Exam: Clear Bilateral Breath Sounds Implantable Cardiac Device Does patient have a Pacemaker or an ICD?: No Airway Exam Known Difficult Airway: No Mallampati Class: 2 Mouth Opening: Narrow (< 3cm) Thyromental Distance: Greater than 3 cm Neck Range of Motion: Full ROM Neck Circumference: Normal Teeth Condition: Normal Dentition ASA Classification ASA Score: ASA 2 Emergency Case?: No NPO Status NPO Status: NPO Clears >2 hours, Solids >8 hours Status Status: Negative HCG Anesthesia Plan Resuscitation Status: Full Code Anesthesia Technique: General Anesthesia Airway Planned: Natural Airway Monitors Used: Standard Monitors Preoperative Comments:: 42 yo female for EGD. Sig PMHx: alcohol abuse, anxiety, depression, fibro, daily smoker, daily ETOH.
[2022-09-13 12:35] VITALS: BP 112/88; PULSE 81; RESP 18; TEMP 36.8; O2SAT 99
[2022-09-13] MEDS: Lactated Ringers 1,000 ML 80 ML IV (13:09)
[2022-09-13 13:43] VITALS: BMI 19.9
--- NOTE | 2022-09-13 13:57 | STOM_PTH ---
PATIENT: Tyler Montes LOC: [facility] U#:[id number] AGE/SX: 42/F ROOM: RE09/13/[address]: Franklin Torres MD : 1980 BED: DIS: 09/13/2022 SPEC #: [id number] RECD: 09/13/22 17:49 STATUS: VIKASH RE #: [id number] JAXSON: 09/13/22 13:[address]: Franklin Torres DEPT: Surgical Specimen RECD BY: Radha Duggan ENTERED: 09/13/22 17:50 SP TYPE: STOMACH OTHR DR: Bill Kohler Tissues: 1 - BIOPSY BOWEL 2 - STOMACH BIOPSY 3 - STOMACH BIOPSY 4 - ESOPHAGUS BIOPSY Procedures: GROSS AND MICRO LEVEL 4 Comments: [id number]
[2022-09-13 14:10] VITALS: BP 117/83; PULSE 80; RESP 18; TEMP 36.5; O2SAT 100
[2022-09-13 14:33] VITALS: BP 118/87; PULSE 65; RESP 16; TEMP 36.6; O2SAT 100
--- NOTE | 2022-09-13 14:40 | W.ANESPOSTOP ---
Postoperative Evaluation Date, Time and Location Date Performed: 09/13/22 Time Performed: 14:40 Patient Location: Day Surgery Unit Vital Signs Most Recent Imported Vital Signs: Most Recent Vital Signs Temp Pulse Resp BP Pulse Ox 36.6 C 65 16 118/87 100 09/13/22 14:33 09/13/22 14:33 09/13/22 14:33 09/13/22 14:33 09/13/22 14:33 Pain Score Most Recent Pain Score: Most Recent Pain Score Pain Level 0 09/13/22 14:33 Assessment Mental Status: Awake (Alert & Oriented to Patient Baseline) Airway and Respiratory Function: Patent airway with normal (patient baseline) respiratory exam Cardiovascular Function: Hemodynamically Stable Hydration Status: Adequately Hydrated Nausea & Vomiting: No Nausea or Vomiting Pain: Pt. Denies Any Pain Peripheral Nerve Block: Patient did not receive a nerve block
== END 2022-09-13 15:24 | disposition home or self-care (01) ==
PROVIDERS: PCP Family Medicine; Visit Provider Surgery
PROC: 0DJ68ZZ Inspection of Stomach, Via Natural or Artificial Opening Endoscopic (ICD-10-PCS; CPT 43235; principal; 2022-09-13 13:45)
DX: K29.81 Duodenitis with bleeding (principal); F10.10 Alcohol abuse, uncomplicated; E46 Unspecified protein-calorie malnutrition; Z68.1 Body mass index [BMI] 19.9 or less, adult; F17.210 Nicotine dependence, cigarettes, uncomplicated; F12.90 Cannabis use, unspecified, uncomplicated; K22.89 Other specified disease of esophagus
CPT/HCPCS: 43239; 81025; 88305; J2704